=== PATIENT | female | born 1990 | race Caucasian/White ===

== ENCOUNTER 2018-09-01 17:02 | Inpatient (IN) | payer BC ==
[2018-09-01] MEDS ORDERED: Terbutaline 1 MG/ML SDV SUBCUT PRN (18:07)
[2018-09-01] MEDS ORDERED: Sodium Chloride 0.9% 10 ML SDV IV PRN (18:07)
[2018-09-01] MEDS ORDERED: Methylergonovine 0.2 MG/1 ML Amp IM PRN (18:07)
[2018-09-01] MEDS ORDERED: Water For Irrigation,Sterile 1,000 ML Container IRR PRN (18:07)
[2018-09-01] MEDS ORDERED: Misoprostol 25 MCG (1/4 of 100 MCG) Tab VAG PRN ×2 (18:07)
[2018-09-01] MEDS ORDERED: Sodium Chloride 0.9% 2.5 ML Syringe FLUSH PRN (18:07)
[2018-09-01] MEDS ORDERED: Nalbuphine 10 MG/1 ML Vial IVPUSH PRN (18:07)
[2018-09-01] MEDS ORDERED: Sodium Chloride 0.9% 10 ML Syringe FLUSH PRN (18:07)
[2018-09-01] MEDS ORDERED: Carboprost Tromethamine 250 MCG/1 ML Amp IM PRN (18:07)
[2018-09-01] MEDS ORDERED: Butorphanol 1 MG/ML SDV IVPUSH PRN (18:07)
[2018-09-01] MEDS ORDERED: Tranexamic Acid 1,000 MG in Sodium Chloride 0.9% 100 ML IV PRN (18:07)
[2018-09-01] MEDS ORDERED: Lidocaine 1% 50 ML MDV INJECT PRN (18:07)
[2018-09-01] MEDS ORDERED: Misoprostol 200 MCG Tab PO PRN (18:07)
[2018-09-01] MEDS ORDERED: Oxytocin/0.9 % Sodium Chloride 30 UNIT/500 ML BAG IV SCH (18:15)
[2018-09-01] MEDS: Lactated Ringers 1,000 ML IV SCH ×3 (19:38→23:27)
[2018-09-01] MEDS ORDERED: Ropivacaine 0.2% 2 MG/ML 20 ML SDV ONE (23:00)
[2018-09-01] MEDS ORDERED: fentaNYL 100 MCG/2 ML SDV ONE (23:00)
[2018-09-01] MEDS ORDERED: Ropivacaine HCl/PF 100 ML ONE (23:01)
[2018-09-01] MEDS ORDERED: Lidocaine HCl/EPINEPHrine 5 ML IJ ONE (23:01)
--- NOTE | 2018-09-01 23:46 | PCM.PREANE ---
Preanesthetic Assessment - Anesthesia/Transfusion/Family Hx Anesthesia History: No Prior Anesthesia Family History of Anesthesia Reaction: No Transfusion History: No Prior Transfusion(s) - Review of Systems General: No Symptoms Pulmonary: No Symptoms Cardiovascular: No Symptoms Gastrointestinal: No Symptoms Neurological: No Symptoms Other: Reports: None - Physical Assessment NPO Status Date: 09/01/18 NPO Status Time: 20:00 (Clear liquids) Pulse: 92 O2 Sat by Pulse Oximetry: 99 Respiratory Rate: 24 Blood Pressure: 142/85 Height: 1.57 m Weight: 92.986 kg ASA Class: 2 Mental Status: Alert & Oriented x3 Dentition: Reports: Normal Dentition ROM/Head Extension: Full Lungs: Clear to Auscultation Cardiovascular: Regular Rate - Lab Values: Laboratory Last Values WBC 16.08 K/uL (4.0-11.0) H 09/01/18 19:07 RBC 4.51 M/uL (4.30-5.90) 09/01/18 19:07 Hgb 12.1 g/dL (12.0-16.0) 09/01/18 19:07 Hct 37.1 % (36.0-46.0) 09/01/18 19:07 MCV 82.3 fL (80.0-98.0) 09/01/18 19:07 MCH 26.8 pg (27.0-32.0) L 09/01/18 19:07 MCHC 32.6 g/dL (31.0-37.0) 09/01/18 19:07 RDW Std Deviation 41.3 fl (28.0-62.0) 09/01/18 19:07 RDW Coeff of Fatuma 14 % (11.0-15.0) 09/01/18 19:07 Plt Count 157 K/uL (150-400) 09/01/18 19:07 MPV 13.10 fL (7.40-12.00) H 09/01/18 19:07 Nucleated RBC % 0.0 /100WBC 09/01/18 19:07 Nucleated RBCs # 0 K/uL 09/01/18 19:07 Membrane Rupture POSITIVE 09/01/18 17:23 Blood Type A POSITIVE 09/01/18 19:07 Antibody Screen NEGATIVE 09/01/18 19:07 - Allergies Allergies/Adverse Reactions: Allergies Allergy/AdvReac Type Severity Reaction Status Date / Time No Known Allergies Allergy Verified 09/01/18 17:39 - Blood Blood Available: No - Anesthesia Plan Free Text/Narrative:: Continuous labor epidural. - Acknowledgements Anesthesia Type Planned: Epidural Pt an Appropriate Candidate for the Planned Anesthesia: Yes Alternatives and Risks of Anesthesia Discussed w Pt/Guardian: Yes Pt/Guardian Understands and Agrees with Anesthesia Plan: Yes Additional Comments: Discussed. ? answered. Permit signed. Did receive Stadol prior. PreAnesthesia Questionnaire - HOME MEDS Home Medications: Home Meds Levothyroxine 1 tab PO DAILY 09/01/18 [History] - CURRENT (IN HOUSE) MEDS Current Meds: Current Medications Butorphanol Tartrate (Stadol) 1 mg IVPUSH Q1H PRN PRN Reason: Pain Last Admin: 09/01/18 22:47 Dose: 1 mg Carboprost Tromethamine (Hemabate Ds) 250 mcg IM ASDIRECTED PRN PRN Reason: Post Hemorrhage Tranexamic Acid 1,000 mg/ (Sodium Chloride) 110 mls @ 660 mls/hr IV ONETIME PRN PRN Reason: Bleeding Lactated Ringer's (Ringers, Lactated) 1,000 mls @ 150 mls/hr IV ASDIRECTED ATIYA Last Admin: 09/01/18 23:27 Dose: 999 mls/hr Oxytocin/Sodium Chloride (Oxytocin 30 Unit/500 Ml-Ns) 30 unit in 500 mls @ 999 mls/hr IV TITRATE ATIYA Lidocaine HCl (Xylocaine 1%) 50 ml INJECT ONETIME PRN PRN Reason: Laceration repair Methylergonovine Maleate (Methergine) 0.2 mg IM ASDIRECTED PRN PRN Reason: Post Hemorrhage Misoprostol (Cytotec) 200 mcg PO ONETIME PRN PRN Reason: Post Hemorrhage Misoprostol (Cytotec) 25 mcg VAG ONETIME PRN PRN Reason: Cervical Ripening Last Admin: 09/01/18 20:25 Dose: 25 mcg Misoprostol (Cytotec) 25 mcg VAG Q6H PRN PRN Reason: Cervical Ripening Nalbuphine HCl (Nubain) 10 mg IVPUSH Q1H PRN PRN Reason: Pain (severe 7-10) Sodium Chloride (Saline Flush) 10 ml FLUSH ASDIRECTED PRN PRN Reason: Keep Vein Open Sodium Chloride (Saline Flush) 2.5 ml FLUSH ASDIRECTED PRN PRN Reason: Keep Vein Open Sodium Chloride (Normal Saline) 10 ml IV ASDIRECTED PRN PRN Reason: IV Use Sterile Water (Sterile Water For Irrigation) 1,000 ml IRR ASDIRECTED PRN PRN Reason: delivery Terbutaline Sulfate (Brethine) 0.25 mg SUBCUT ASDIRECTED PRN PRN Reason: Tacysystole Discontinued Medications Fentanyl (Sublimaze) Confirm Administered Dose 100 mcg .ROUTE .STK-MED ONE Stop: 09/01/18 23:01 Ropivacaine (Naropin 0.2%) Confirm Administered Dose 100 mls @ as directed .ROUTE .STK-MED ONE Stop: 09/01/18 23:02 Lidocaine/Epinephrine (Lidocaine 1.5%-Epi 1:200,000) Confirm Administered Dose 5 ml IJ .STK-MED ONE Stop: 09/01/18 23:02 Ropivacaine (Naropin 0.2%) Confirm Administered Dose 20 ml .ROUTE .STK-MED ONE Stop: 09/01/18 23:01
--- NOTE | 2018-09-02 00:11 | PCM.PRNOTE ---
- Free Text/Narrative Note: Requested for Labor Epidural on 28y/o in active labor at ~ 5cm. Recently received Stadol. Discussed, risks, benefits and expectations explained. Accepts and wishes to proceed. Permit signed. Prep x3 with betadine @ 7579. Skin local with 4ml 1% Lidocaine @ L3-L4 interspace. 23:13 18g epidural needle inserted. Space via BOGDAN with saline/air mixture. Reconfirmed with 3 ml saline flush. 23:15 Catheter to 8 cm without issues. 23:16 Test dose with 5ml 1.5% lidocaine with 1:200K epi. Test NEGATIVE. Occlusive drsg applied, catheter taped securely. 23:20 Bolus given over 5 minutes of 8ml 0.2% naropin with 100mcg fentanyl added. Vital signs stable. No problems noted. 23:30 Gtt started 8ml/hr, 4ml q15 bolus. 0.2% Naropin. Pain score <2 at present. 23:45 Pain <1. VSS. Doing well. No problems noted at present. 00:10 Resting quietly, pain <1. No problems noted.
--- NOTE | 2018-09-02 03:52 | PCM.DEL ---
L & D Note - General Info Date of Service: 09/02/18 Mother's Due Date: 09/14/18 - Delivery Note Cervical Ripening Method: Misoprostil (after PROM) Delivery Outcome: Livebirth Delivery Mode: Spontaneous Presentation: Left Occiput Anterior (RENO) Nuchal Cord: None Prep: Other Anesthesia Type: Epidural Amniotic Fluid Description: Clear Episiotomy Type: None Laceration: Vaginal Suture type: Vicryl Suture size: 3-0 Placenta: Intact, Spontaneous Cord: 3 Vessels Estimated Blood Loss: 200 Resuscitation Needed: No : Suctioned Score 1 min: 9 Score 5 min: 9 Delivery Comments (Free Text/Narrative):: Liveborn female weight pending. - General Info Date of Service: 09/02/18 - Patient Data Vitals - Most Recent: Last Vital Signs Temp Pulse 92 09/01/18 23:47 Resp 24 H 09/01/18 23:47 BP 142/85 H 09/01/18 23:47 Pulse Ox 99 09/01/18 23:47 Weight - Most Recent: 92.986 kg Lab Results Last 24 Hours: Laboratory Results - last 24 hr 09/01/18 09/01/18 09/01/18 Range/Units 17:23 19:07 19:07 WBC 16.08 H (4.0-11.0) K/uL RBC 4.51 (4.30-5.90) M/uL Hgb 12.1 (12.0-16.0) g/dL Hct 37.1 (36.0-46.0) % MCV 82.3 (80.0-98.0) fL MCH 26.8 L (27.0-32.0) pg MCHC 32.6 (31.0-37.0) g/dL RDW Std Deviation 41.3 (28.0-62.0) fl RDW Coeff of Fatuma 14 (11.0-15.0) % Plt Count 157 (150-400) K/uL MPV 13.10 H (7.40-12.00) fL Nucleated RBC % 0.0 /100WBC Nucleated RBCs # 0 K/uL Membrane Rupture POSITIVE Blood Type A POSITIVE Antibody Screen NEGATIVE Med Orders - Current: Current Medications Butorphanol Tartrate (Stadol) 1 mg IVPUSH Q1H PRN PRN Reason: Pain Last Admin: 09/01/18 22:47 Dose: 1 mg Carboprost Tromethamine (Hemabate Ds) 250 mcg IM ASDIRECTED PRN PRN Reason: Post Hemorrhage Tranexamic Acid 1,000 mg/ (Sodium Chloride) 110 mls @ 660 mls/hr IV ONETIME PRN PRN Reason: Bleeding Lactated Ringer's (Ringers, Lactated) 1,000 mls @ 150 mls/hr IV ASDIRECTED ATIYA Last Admin: 09/01/18 23:27 Dose: 999 mls/hr Oxytocin/Sodium Chloride (Oxytocin 30 Unit/500 Ml-Ns) 30 unit in 500 mls @ 999 mls/hr IV TITRATE [facility] Lidocaine HCl (Xylocaine 1%) 50 ml INJECT ONETIME PRN PRN Reason: Laceration repair Methylergonovine Maleate (Methergine) 0.2 mg IM ASDIRECTED PRN PRN Reason: Post Hemorrhage Misoprostol (Cytotec) 200 mcg PO ONETIME PRN PRN Reason: Post Hemorrhage Misoprostol (Cytotec) 25 mcg VAG ONETIME PRN PRN Reason: Cervical Ripening Last Admin: 09/01/18 20:25 Dose: 25 mcg Misoprostol (Cytotec) 25 mcg VAG Q6H PRN PRN Reason: Cervical Ripening Nalbuphine HCl (Nubain) 10 mg IVPUSH Q1H PRN PRN Reason: Pain (severe 7-10) Sodium Chloride (Saline Flush) 10 ml FLUSH ASDIRECTED PRN PRN Reason: Keep Vein Open Sodium Chloride (Saline Flush) 2.5 ml FLUSH ASDIRECTED PRN PRN Reason: Keep Vein Open Sodium Chloride (Normal Saline) 10 ml IV ASDIRECTED PRN PRN Reason: IV Use Sterile Water (Sterile Water For Irrigation) 1,000 ml IRR ASDIRECTED PRN PRN Reason: delivery Terbutaline Sulfate (Brethine) 0.25 mg SUBCUT ASDIRECTED PRN PRN Reason: Tacysystole Discontinued Medications Fentanyl (Sublimaze) Confirm Administered Dose 100 mcg .ROUTE .STK-MED ONE Stop: 09/01/18 23:01 Ropivacaine (Naropin 0.2%) Confirm Administered Dose 100 mls @ as directed .ROUTE .STK-MED ONE Stop: 09/01/18 23:02 Lidocaine/Epinephrine (Lidocaine 1.5%-Epi 1:200,000) Confirm Administered Dose 5 ml IJ .STK-MED ONE Stop: 09/01/18 23:02 Ropivacaine (Naropin 0.2%) Confirm Administered Dose 20 ml .ROUTE .STK-MED ONE Stop: 09/01/18 23:01 - Problem List & Annotations (1) Vaginal delivery SNOMED Code(s): 030376322 Code(s): O80 - ENCOUNTER FOR FULL-TERM UNCOMPLICATED DELIVERY Status: Acute Current Visit: Yes - Problem List Review Problem List Initiated/Reviewed/Updated: Yes - My Orders Last 24 Hours: My Active Orders 09/01/18 17:39 Patient Status [ADT] Routine Up ad Taniya [RC] ASDIRECTED Resuscitation Status Routine 09/01/18 18:07 Butorphanol [Stadol] 1 mg IVPUSH Q1H PRN Carboprost Tromethamine [Hemabate DS] 250 mcg IM ASDIRECTED PRN Lidocaine 1% [Xylocaine 1%] 50 ml INJECT ONETIME PRN Methylergonovine [Methergine] 0.2 mg IM ASDIRECTED PRN Nalbuphine [Nubain] 10 mg IVPUSH Q1H PRN Sodium Chloride 0.9% [Normal Saline] 10 ml IV ASDIRECTED PRN Sodium Chloride 0.9% [Saline Flush] 10 ml FLUSH ASDIRECTED PRN Sodium Chloride 0.9% [Saline Flush] 2.5 ml FLUSH ASDIRECTED PRN Terbutaline [Brethine] 0.25 mg SUBCUT ASDIRECTED PRN Tranexamic Acid [Cyklokapron] 1,000 mg Sodium Chloride 0.9% [Normal Saline] 100 ml IV ONETIME Water For Irrigation,Sterile [Sterile Water for Irrigation] 1,000 ml IRR ASDIRECTED PRN miSOPROStol [Cytotec] 200 mcg PO ONETIME PRN miSOPROStol [Cytotec] 25 mcg VAG ONETIME PRN miSOPROStol [Cytotec] 25 mcg VAG Q6H PRN 09/01/18 18:09 Patient Status [ADT] Routine Bedrest Bathroom Privileges [RC] ASDIRECTED Communication Order [RC] ASDIRECTED May Shower [RC] ASDIRECTED Notify Provider [RC] PRN Oxygen Therapy [RC] ASDIRECTED Vital Signs [RC] PER UNIT ROUTINE Scalp Electrode [WOMSER] Per Unit Routine Peripheral IV Insertion Adult [OM.PC] Routine 09/01/18 18:15 Lactated Ringers [Ringers, Lactated] 1,000 ml IV ASDIRECTED Oxytocin/0.9 % Sodium Chloride [Oxytocin 30 Unit/500 ML-NS] 30 unit in 500 ml IV TITRATE
[2018-09-02] MEDS ORDERED: Acetaminophen 500 MG Tab PO PRN (03:53)
[2018-09-02] MEDS ORDERED: Bisacodyl 10 MG Supp RECTAL PRN (03:53)
[2018-09-02] MEDS ORDERED: Lanolin 100% Cream 7 GM Tube TOP PRN (03:53)
[2018-09-02] MEDS ORDERED: Methylergonovine 0.2 MG/1 ML Amp IM PRN (03:53)
[2018-09-02] MEDS ORDERED: Witch Hazel Medicated Pads 40/Jar TOP PRN (03:53)
[2018-09-02] MEDS ORDERED: Benzocaine/Menthol 20%-0.5% Spray 78 GM Cannister TOP PRN (03:53)
[2018-09-02] MEDS ORDERED: oxyCODONE 5 MG Tab PO PRN (03:53)
[2018-09-02] MEDS ORDERED: Docusate Sodium 100 MG Cap PO PRN (03:53)
[2018-09-02] MEDS ORDERED: Ibuprofen 400 MG Tab PO PRN (03:53)
--- NOTE | 2018-09-02 04:48 | OR ---
SURGEON: Patricia Contreras M.D. DATE OF PROCEDURE: 09/02/2018 PREOPERATIVE DIAGNOSES: A 38-2/7th week intrauterine , premature rupture of membranes with induction. POSTOPERATIVE DIAGNOSES: A 38-2/7th week intrauterine , premature rupture of membranes with induction. PROCEDURES: Cytotec induction of labor, term spontaneous vaginal delivery, repair of vaginal laceration. ANESTHESIA: Epidural. ESTIMATED BLOOD LOSS: Less than 200 mL. FINDINGS: Liveborn female, score 9 and 9. Weight is pending at the time of dictation. Placenta spontaneous, Schultze intact with 3 vessels. Perineum intact. There was a midline vaginal laceration. No periurethral, vaginal sidewall, cervical or rectal lacerations. EBL less than 200 mL. BRIEF HISTORY: This is a 28-year-old female, G1, P0. She presents at 38 and 1/7th weeks gestation with spontaneous rupture of membranes, clear fluid. She was 2 cm, 80%, -2 station. Occasional contraction. She received a single dose of Cytotec for induction. She received an epidural for pain control when she was 5 cm dilated. She had category 1 heart tones. She progressed to complete. DESCRIPTION OF PROCEDURE: With the patient in dorsal lithotomy position, under adequate epidural analgesia, the patient pushed over a 20-minute time period to a 5+ station, at which time the head was delivered spontaneously and atraumatically over the perineum with support with subsequent delivery of the infant's shoulders and body without any difficulty. The was bulb suctioned by nose and mouth, and after the cord had ceased to pulsate, it was doubly clamped and cut. The infant was handed to the mother in the presence of the nurse attending delivery. The infant was a liveborn female, scores 9 and 9. Weight is pending at the time of dictation. Cord blood was collected for cord ABGs as well as routine cord blood sampling. Pitocin was initiated after delivery of the to assist with delivery of the placenta which was delivered spontaneously. Schultze intact with 3 vessels. Upon inspection of the pelvis and perineum, there were no periurethral, vaginal sidewall, cervical or perineal laceration. There was a midline posterior vaginal laceration that was repaired using a running lock suture of 3-0 Vicryl. Rectal exam confirmed no laceration or tear or suturing near the rectum. Final sponge, needle, and instrument counts were correct. There were no new complications. Mother and baby are in LDR in good condition. PRETTY QUILES /[id number]
[2018-09-02] MEDS: Ibuprofen 800 MG Tab PO PRN ×2 (05:35→22:59)
[2018-09-02] MEDS ORDERED: Levothyroxine 25 MCG Tab PO SCH (09:00)
[2018-09-02] MEDS: Acetaminophen 500 MG Tab PO PRN ×2 (09:22→16:01)
--- NOTE | 2018-09-02 10:23 | PCM.PNPP ---
- General Info Date of Service: 09/02/18 Subjective Update: She felt dizzy this am when getting up to take a shower. She has not slept significantly since delivery. She has had 3 small grape sized clots. Functional Status: Reports: Pain Controlled, Tolerating Diet, Ambulating, Urinating - Review of Systems General: Reports: No Symptoms HEENT: Reports: No Symptoms Pulmonary: Reports: No Symptoms Cardiovascular: Reports: No Symptoms Gastrointestinal: Reports: No Symptoms Genitourinary: Reports: No Symptoms Musculoskeletal: Reports: No Symptoms Skin: Reports: No Symptoms Neurological: Reports: No Symptoms Psychiatric: Reports: No Symptoms - Patient Data Vital Signs - Most Recent: Last Vital Signs Temp 36.7 C 09/02/18 07:28 Pulse 96 09/02/18 07:28 Resp 17 09/02/18 07:28 BP 135/84 09/02/18 07:28 Pulse Ox 94 L 09/02/18 07:28 Weight - Most Recent: 92.986 kg Lab Results - Last 24 Hours: Laboratory Results - last 24 hr 09/01/18 09/01/18 09/01/18 Range/Units 17:23 19:07 19:07 WBC 16.08 H (4.0-11.0) K/uL RBC 4.51 (4.30-5.90) M/uL Hgb 12.1 (12.0-16.0) g/dL Hct 37.1 (36.0-46.0) % MCV 82.3 (80.0-98.0) fL MCH 26.8 L (27.0-32.0) pg MCHC 32.6 (31.0-37.0) g/dL RDW Std Deviation 41.3 (28.0-62.0) fl RDW Coeff of Fatuma 14 (11.0-15.0) % Plt Count 157 (150-400) K/uL MPV 13.10 H (7.40-12.00) fL Nucleated RBC % 0.0 /100WBC Nucleated RBCs # 0 K/uL Cord ABG pH (7.18-7.38) Cord ABG Base Excess (-10--2) Cord VBG pH (7.25-7.45) Cord VBG Base Excess (-10--2) Membrane Rupture POSITIVE Blood Type A POSITIVE Antibody Screen NEGATIVE 09/02/18 09/02/18 Range/Units 03:22 03:22 WBC (4.0-11.0) K/uL RBC (4.30-5.90) M/uL Hgb (12.0-16.0) g/dL Hct (36.0-46.0) % MCV (80.0-98.0) fL MCH (27.0-32.0) pg MCHC (31.0-37.0) g/dL RDW Std Deviation (28.0-62.0) fl RDW Coeff of Fatuma (11.0-15.0) % Plt Count (150-400) K/uL MPV (7.40-12.00) fL Nucleated RBC % /100WBC Nucleated RBCs # K/uL Cord ABG pH 7.252 (7.18-7.38) Cord ABG Base Excess -4 (-10--2) Cord VBG pH 7.297 (7.25-7.45) Cord VBG Base Excess -6 (-10--2) Membrane Rupture Blood Type Antibody Screen Med Orders - Current: Current Medications Acetaminophen (Tylenol Extra Strength) 500 mg PO Q4H PRN PRN Reason: Pain Acetaminophen (Tylenol Extra Strength) 1,000 mg PO Q4H PRN PRN Reason: Pain Last Admin: 09/02/18 09:22 Dose: 1,000 mg Benzocaine/Menthol (Dermoplast Pain Relief 20%-0.5% [place]) 78 gm TOP ASDIRECTED PRN PRN Reason: Perineal Comfort Measure Last Admin: 09/02/18 08:17 Dose: 1 applic Bisacodyl (Dulcolax) 10 mg RECTAL ONETIME PRN PRN Reason: Constipation Docusate Sodium (Colace) 100 mg PO BID PRN PRN Reason: Constipation Emollient Ointment (Lansinoh Hpa) 0 gm TOP ASDIRECTED PRN PRN Reason: Sore Nipples Last Admin: 09/02/18 08:18 Dose: 1 applic Ibuprofen (Motrin) 400 mg PO Q4H PRN PRN Reason: Pain Ibuprofen (Motrin) 800 mg PO Q6H PRN PRN Reason: Pain Last Admin: 09/02/18 05:35 Dose: 800 mg Levothyroxine Sodium (Levothyroxine) 25 mcg PO DAILY ATIYA Last Admin: 09/02/18 09:22 Dose: 25 mcg Methylergonovine Maleate (Methergine) 0.2 mg IM ONETIME PRN PRN Reason: Excessive Vaginal Bleeding Oxycodone HCl (Oxycodone) 5 mg PO Q2H PRN PRN Reason: Pain Witch Natalia (Tucks) 1 pad TOP ASDIRECTED PRN PRN Reason: comfort care Last Admin: 09/02/18 08:18 Dose: 1 applicful Discontinued Medications Butorphanol Tartrate (Stadol) 1 mg IVPUSH Q1H PRN PRN Reason: Pain Last Admin: 09/01/18 22:47 Dose: 1 mg Carboprost Tromethamine (Hemabate Ds) 250 mcg IM ASDIRECTED PRN PRN Reason: Post Hemorrhage Fentanyl (Sublimaze) Confirm Administered Dose 100 mcg .ROUTE .STK-MED ONE Stop: 09/01/18 23:01 Tranexamic Acid 1,000 mg/ (Sodium Chloride) 110 mls @ 660 mls/hr IV ONETIME PRN PRN Reason: Bleeding Lactated Ringer's (Ringers, Lactated) 1,000 mls @ 150 mls/hr IV ASDIRECTED [facility] Last Admin: 09/01/18 23:27 Dose: 999 mls/hr Oxytocin/Sodium Chloride (Oxytocin 30 Unit/500 Ml-Ns) 30 unit in 500 mls @ 999 mls/hr IV TITRATE [facility] Ropivacaine (Naropin 0.2%) Confirm Administered Dose 100 mls @ as directed .ROUTE .STK-MED ONE Stop: 09/01/18 23:02 Lidocaine HCl (Xylocaine 1%) 50 ml INJECT ONETIME PRN PRN Reason: Laceration repair Lidocaine/Epinephrine (Lidocaine 1.5%-Epi 1:200,000) Confirm Administered Dose 5 ml IJ .STK-MED ONE Stop: 09/01/18 23:02 Methylergonovine Maleate (Methergine) 0.2 mg IM ASDIRECTED PRN PRN Reason: Post Hemorrhage Misoprostol (Cytotec) 200 mcg PO ONETIME PRN PRN Reason: Post Hemorrhage Misoprostol (Cytotec) 25 mcg VAG ONETIME PRN PRN Reason: Cervical Ripening Last Admin: 09/01/18 20:25 Dose: 25 mcg Misoprostol (Cytotec) 25 mcg VAG Q6H PRN PRN Reason: Cervical Ripening Nalbuphine HCl (Nubain) 10 mg IVPUSH Q1H PRN PRN Reason: Pain (severe 7-10) Ropivacaine (Naropin 0.2%) Confirm Administered Dose 20 ml .ROUTE .[place]stel ONE Stop: 09/01/18 23:01 Sodium Chloride (Saline Flush) 10 ml FLUSH ASDIRECTED PRN PRN Reason: Keep Vein Open Sodium Chloride (Saline Flush) 2.5 ml FLUSH ASDIRECTED PRN PRN Reason: Keep Vein Open Sodium Chloride (Normal Saline) 10 ml IV ASDIRECTED PRN PRN Reason: IV Use Sterile Water (Sterile Water For Irrigation) 1,000 ml IRR ASDIRECTED PRN PRN Reason: delivery Terbutaline Sulfate (Brethine) 0.25 mg SUBCUT ASDIRECTED PRN PRN Reason: Tacysystole - Interaction Disposition, : in Room with Family Infant Interaction: Holding Feeding: Breastfed ; Nursed Well Support Person: - Recovery Exam Fundal Tone: Firm Fundal Level: 1 Fingerbreadths Below Umbilicus Fundal Placement: Midline Lochia Amount: Small Lochia Color: Rubra/Red Perineum Description: Edematous Episiotomy/Laceration: Approximated Bladder Status: Voiding - Exam General: Alert, Oriented HEENT: Pupils Equal Neck: Supple Lungs: Normal Respiratory Effort GI/Abdominal Exam: Soft, Non-Tender, No Mass Extremities: Normal Inspection, Normal Range of Motion. No: No Pedal Edema (1+) Skin: Warm, Dry, Intact Neurological: No New Focal Deficit Psy/Mental Status: Alert, Normal Affect, Normal Mood - Problem List & Annotations (1) Vaginal delivery SNOMED Code(s): 674039946 Code(s): O80 - ENCOUNTER FOR FULL-TERM UNCOMPLICATED DELIVERY Status: Acute Current Visit: Yes - Problem List Review Problem List Initiated/Reviewed/Updated: Yes - My Orders Last 24 Hours: My Active Orders 09/01/18 17:39 Up ad Taniya [RC] ASDIRECTED 09/01/18 18:09 Bedrest Bathroom Privileges [RC] ASDIRECTED Communication Order [RC] ASDIRECTED May Shower [RC] ASDIRECTED Notify Provider [RC] PRN Oxygen Therapy [RC] ASDIRECTED Vital Signs [RC] PER UNIT ROUTINE 09/02/18 03:53 Acetaminophen [Tylenol Extra Strength] 1,000 mg PO Q4H PRN Acetaminophen [Tylenol Extra Strength] 500 mg PO Q4H PRN Benzocaine/Menthol [Dermoplast Pain Relief 20%-0.5% [place]] 78 gm TOP ASDIRECTED PRN Bisacodyl [Dulcolax] 10 mg RECTAL ONETIME PRN Docusate Sodium [Colace] 100 mg PO BID PRN Ibuprofen [Motrin] 400 mg PO Q4H PRN Ibuprofen [Motrin] 800 mg PO Q6H PRN Lanolin [Lansinoh HPA] See Dose Instructions TOP ASDIRECTED PRN Methylergonovine [Methergine] 0.2 mg IM ONETIME PRN Witch Natalia [Tucks] 1 pad TOP ASDIRECTED PRN oxyCODONE 5 mg PO Q2H PRN Resuscitation Status Routine 09/02/18 03:54 Patient Status [ADT] Routine May Shower [RC] ASDIRECTED Up ad Taniya [RC] ASDIRECTED Vital Signs [RC] PER UNIT ROUTINE Assess Lochia [WOMSER] Per Unit Routine Assess Uterine Involution [WOMSER] Per Unit Routine Perineal Care [OM.PC] Per Unit Routine Peripheral IV Discontinue [OM.PC] Routine 09/02/18 09:00 Levothyroxine 25 mcg PO DAILY 09/02/18 Breakfast Regular Diet [DIET] 09/03/18 05:11 HEMOGLOBIN/HEMATOCRIT,HH [HEME] Timed - Assessment Assessment:: PPD#0 after , stable minimal lochia, tolerating diet Has not slept, wants to take a shower. - Plan Plan:: Encouraged hydration, encouraged her to wait on shower until blood count is available, encouraged her to sleep during the day to catch up on rest, but she is resistant to all of these recommendations.
--- NOTE | 2018-09-02 11:10 | PCM48HPAN ---
Post Anesthesia Note - EVALUATION WITHIN 48HRS OF ANESTHETIC Vital Signs in Normal Range: Yes Patient Participated in Evaluation: Yes Respiratory Function Stable: Yes Airway Patent: Yes Cardiovascular Function Stable: Yes Hydration Status Stable: Yes Pain Control Satisfactory: Yes Nausea and Vomiting Control Satisfactory: Yes Mental Status Recovered: Yes Pulse Rate: 88 SaO2: 97 Resp Rate: 17 Temperature: 37.2 C Blood Pressure: 142/85 - COMMENTS/OBSERVATIONS Free Text/Narrative:: Doing well. No problems noted at present. Progressing well.
--- NOTE | 2018-09-03 08:40 | PCM.PNPP ---
- General Info Date of Service: 09/03/18 Subjective Update: Breast feeding well, bleeding is light. Would like to go home today, baby needs bili lights this am. Functional Status: Reports: Pain Controlled - Review of Systems General: Reports: No Symptoms HEENT: Reports: No Symptoms Pulmonary: Reports: No Symptoms Cardiovascular: Reports: No Symptoms Gastrointestinal: Reports: No Symptoms Genitourinary: Reports: No Symptoms Musculoskeletal: Reports: No Symptoms Skin: Reports: No Symptoms Neurological: Reports: No Symptoms Psychiatric: Reports: No Symptoms - General Info Date of Service: 09/03/18 - Patient Data Vital Signs - Most Recent: Last Vital Signs Temp 36.4 C 09/03/18 07:30 Pulse 73 09/03/18 07:30 Resp 16 09/03/18 07:30 BP 133/89 09/03/18 07:30 Pulse Ox 98 09/03/18 07:30 Weight - Most Recent: 92.986 kg Lab Results - Last 24 Hours: Laboratory Results - last 24 hr 09/02/18 Range/Units 10:39 Hgb 11.7 L (12.0-16.0) g/dL Hct 36.7 (36.0-46.0) % Med Orders - Current: Current Medications Acetaminophen (Tylenol Extra Strength) 500 mg PO Q4H PRN PRN Reason: Pain Acetaminophen (Tylenol Extra Strength) 1,000 mg PO Q4H PRN PRN Reason: Pain Last Admin: 09/02/18 16:01 Dose: 1,000 mg Benzocaine/Menthol (Dermoplast Pain Relief 20%-0.5% [place]) 78 gm TOP ASDIRECTED PRN PRN Reason: Perineal Comfort Measure Last Admin: 09/02/18 08:17 Dose: 1 applic Bisacodyl (Dulcolax) 10 mg RECTAL ONETIME PRN PRN Reason: Constipation Docusate Sodium (Colace) 100 mg PO BID PRN PRN Reason: Constipation Last Admin: 09/02/18 22:59 Dose: 100 mg Emollient Ointment (Lansinoh Hpa) 0 gm TOP ASDIRECTED PRN PRN Reason: Sore Nipples Last Admin: 09/02/18 08:18 Dose: 1 applic Ibuprofen (Motrin) 400 mg PO Q4H PRN PRN Reason: Pain Ibuprofen (Motrin) 800 mg PO Q6H PRN PRN Reason: Pain Last Admin: 09/02/18 22:59 Dose: 800 mg Levothyroxine Sodium (Levothyroxine) 25 mcg PO DAILY [facility] Last Admin: 09/02/18 09:22 Dose: 25 mcg Methylergonovine Maleate (Methergine) 0.2 mg IM ONETIME PRN PRN Reason: Excessive Vaginal Bleeding Oxycodone HCl (Oxycodone) 5 mg PO Q2H PRN PRN Reason: Pain Witch Natalia (Tucks) 1 pad TOP ASDIRECTED PRN PRN Reason: comfort care Last Admin: 09/02/18 08:18 Dose: 1 applicful Discontinued Medications Butorphanol Tartrate (Stadol) 1 mg IVPUSH Q1H PRN PRN Reason: Pain Last Admin: 09/01/18 22:47 Dose: 1 mg Carboprost Tromethamine (Hemabate Ds) 250 mcg IM ASDIRECTED PRN PRN Reason: Post Hemorrhage Fentanyl (Sublimaze) Confirm Administered Dose 100 mcg .ROUTE .STK-MED ONE Stop: 09/01/18 23:01 Tranexamic Acid 1,000 mg/ (Sodium Chloride) 110 mls @ 660 mls/hr IV ONETIME PRN PRN Reason: Bleeding Lactated Ringer's (Ringers, Lactated) 1,000 mls @ 150 mls/hr IV ASDIRECTED [facility] Last Admin: 09/01/18 23:27 Dose: 999 mls/hr Oxytocin/Sodium Chloride (Oxytocin 30 Unit/500 Ml-Ns) 30 unit in 500 mls @ 999 mls/hr IV TITRATE [facility] Ropivacaine (Naropin 0.2%) Confirm Administered Dose 100 mls @ as directed .ROUTE .STK-MED ONE Stop: 09/01/18 23:02 Lidocaine HCl (Xylocaine 1%) 50 ml INJECT ONETIME PRN PRN Reason: Laceration repair Lidocaine/Epinephrine (Lidocaine 1.5%-Epi 1:200,000) Confirm Administered Dose 5 ml IJ .STK-MED ONE Stop: 09/01/18 23:02 Methylergonovine Maleate (Methergine) 0.2 mg IM ASDIRECTED PRN PRN Reason: Post Hemorrhage Misoprostol (Cytotec) 200 mcg PO ONETIME PRN PRN Reason: Post Hemorrhage Misoprostol (Cytotec) 25 mcg VAG ONETIME PRN PRN Reason: Cervical Ripening Last Admin: 09/01/18 20:25 Dose: 25 mcg Misoprostol (Cytotec) 25 mcg VAG Q6H PRN PRN Reason: Cervical Ripening Nalbuphine HCl (Nubain) 10 mg IVPUSH Q1H PRN PRN Reason: Pain (severe 7-10) Ropivacaine (Naropin 0.2%) Confirm Administered Dose 20 ml .ROUTE .[facility]-MED ONE Stop: 09/01/18 23:01 Sodium Chloride (Saline Flush) 10 ml FLUSH ASDIRECTED PRN PRN Reason: Keep Vein Open Sodium Chloride (Saline Flush) 2.5 ml FLUSH ASDIRECTED PRN PRN Reason: Keep Vein Open Sodium Chloride (Normal Saline) 10 ml IV ASDIRECTED PRN PRN Reason: IV Use Sterile Water (Sterile Water For Irrigation) 1,000 ml IRR ASDIRECTED PRN PRN Reason: delivery Terbutaline Sulfate (Brethine) 0.25 mg SUBCUT ASDIRECTED PRN PRN Reason: Tacysystole - Infant Interaction Disposition, : [place] to Nursery Feeding: Breastfed Infant; Nursed Well Support Person: - Recovery Exam Fundal Tone: Firm Fundal Level: 1 Fingerbreadths Below Umbilicus Fundal Placement: Midline Lochia Amount: Small Lochia Color: Rubra/Red Perineum Description: Intact, Minimal Bruising/Swelling Episiotomy/Laceration: Approximated Bladder Status: Voiding Urinary Elimination: Voided - Exam General: Alert, Oriented HEENT: Pupils Equal Neck: Supple Lungs: Normal Respiratory Effort GI/Abdominal Exam: Soft, Non-Tender, No Mass Extremities: Normal Inspection, Non-Tender, No Pedal Edema (trace) Skin: Warm, Dry, Intact Neurological: No New Focal Deficit Psy/Mental Status: Alert, Normal Affect, Normal Mood - Problem List & Annotations (1) Vaginal delivery SNOMED Code(s): 446326657 Code(s): O80 - ENCOUNTER FOR FULL-TERM UNCOMPLICATED DELIVERY Status: Acute Current Visit: Yes - Problem List Review Problem List Initiated/Reviewed/Updated: Yes - My Orders Last 24 Hours: My Active Orders 09/02/18 09:00 Levothyroxine 25 mcg PO DAILY - Assessment Assessment:: PPD#1 after , stable minimal lochia, tolerating diet would like to go home today if baby is discharged. - Plan Plan:: Discharge instructions reviewed.
[2018-09-03 20:06] VITALS: BP 136/90
== END 2018-09-03 20:45 | disposition home or self-care (01) | DRG 560 ==
LOC: MW.OBCHECK 17:02 → MW.OB 17:04 → MW.OBCHECK 18:09 → OBSVTOIN 09-02 03:22 → MW.OB 09-02 09:55
PROVIDERS: ADMIT Obstetrics & Gynecology; ATTEND Obstetrics & Gynecology
PROC: 10E0XZZ Delivery of Products of Conception, External Approach (ICD-10-PCS; principal; 2018-09-02)
PROC: 0HQ9XZZ Repair Perineum Skin, External Approach (ICD-10-PCS; 2018-09-02)
PROC: 3E0P7VZ Introduction of Hormone into Female Reproductive, Via Natural or Artificial Opening (ICD-10-PCS; 2018-09-02)
PROC: 3E0R3BZ Introduction of Anesthetic Agent into Spinal Canal, Percutaneous Approach (ICD-10-PCS; 2018-09-02)
DX: O42.90 Premature rupture of membranes, unspecified as to length of time between rupture and onset of labor, unspecified weeks of gestation (principal); O99.284 Endocrine, nutritional and metabolic diseases complicating childbirth; E03.9 Hypothyroidism, unspecified; F41.9 Anxiety disorder, unspecified; F32.9 Major depressive disorder, single episode, unspecified; O99.344 Other mental disorders complicating childbirth; O99.214 Obesity complicating childbirth; O70.0 First degree perineal laceration during delivery; E66.9 Obesity, unspecified; Z3A.38 38 weeks gestation of pregnancy; Z37.0 Single live birth
CPT/HCPCS: 01967; 36415; 51702; 59025; 59409; 82803; 84112; 85014; 85018; 85027; 86850; 86900; 86901; A9270-GY; J0595; J7120

== ENCOUNTER 2020-06-30 04:11 | Inpatient (IN) | payer BC ==
[2020-06-30 06:32] LABS: BLOOD UREA NITROGEN,BUN 11 mg/dL (7.0-18.0); CARBON DIOXIDE,CO2 25.5 mmol/L (21.0-32.0); CHLORIDE,CL 100 mmol/L (98-107); GLUCOSE RANDOM 87 mg/dL (74-106); POTASSIUM,K 4.1 mmol/L (3.5-5.1); SODIUM,NA 138 mmol/L (136-145)
[2020-06-30] MEDS ORDERED: Sodium Chloride 0.9% 2.5 ML Syringe FLUSH PRN (06:33)
[2020-06-30] MEDS ORDERED: ceFAZolin 2 GM in Premix Bag 1 BAG IV ONE (06:33)
[2020-06-30] MEDS ORDERED: Citric Acid/Sodium Citrate Solution 30 ML Cup PO ONE (06:33)
[2020-06-30] MEDS ORDERED: Sodium Chloride 0.9% 10 ML SDV IV PRN (06:33)
[2020-06-30] MEDS ORDERED: Sodium Chloride 0.9% 10 ML Syringe FLUSH PRN (06:33)
[2020-06-30] MEDS ORDERED: Oxytocin/0.9 % Sodium Chloride 30 UNIT/500 ML BAG IV SCH (06:45)
[2020-06-30] MEDS ORDERED: Lactated Ringers 1,000 ML IV SCH (06:45)
[2020-06-30] MEDS ORDERED: Phenylephrine 1% 10 MG/ML SDV ONE (07:00)
[2020-06-30] MEDS ORDERED: Ondansetron 4 MG/2 ML SDV ONE (07:00)
[2020-06-30] MEDS ORDERED: Oxytocin 10 Units/1 ML SDV ONE (07:00)
[2020-06-30] MEDS ORDERED: Ketorolac 30 MG/ML SDV ONE (07:00)
--- NOTE | 2020-06-30 07:03 | PCM.LDHP ---
L&D History of Present Illness - General Date of Service: 06/30/20 Admit Problem/Dx: Patient Status Order with Admit Dx/Problem 06/30/20 04:56 Patient Status [ADT] Routine 06/30/20 06:34 Patient Status [ADT] Routine Admission Diagnosis/Problem Admission Diagnosis/Problem - History of Present Illness Present Illness Comments:: 29yo at 35w5d presenting with vaginal bleeding and leakage of fluid. Patient reports this AM when she was in the bathroom noticed a popping sensation followed by a gush of fluid that was mixed with dark vaginal bleeding. She continues to have leakage of smaller amount of the bloody fluid after. She reports noticing stronger contractions also every 5-10min. was complicated by posterior placenta previa, which became low lying and 7mm away from the cervical os on 06/03 ultrasound. She received course of betamethasone on 06/18 and 06/19. She has history of hypothyroidism that has been stable on synthyroid. - Related Data Allergies/Adverse Reactions: Allergies Allergy/AdvReac Type Severity Reaction Status Date / Time No Known Allergies Allergy Verified 06/30/20 04:53 Home Medications: Home Meds Levothyroxine 3 tab PO DAILY 09/01/18 [History] Sertraline [Zoloft] 100 mg PO DAILY 06/30/20 [History] Past Medical History HEENT History: Reports: Impaired Vision CULINARY CHEF History: Reports: PID, , Other (See Below) Other OB/BYN History: Abnormal PAP, HPV+. Neurological History: Reports: Migraines Psychiatric History: Reports: Anxiety, Depression Endocrine/Metabolic History: Reports: Hypothyroidism, Obesity/BMI 30+ - Infectious Disease History Infectious Disease History: Reports: Human Papilloma Virus (HPV), Mononucleosis - Past Surgical History HEENT Surgical History: Reports: Tonsillectomy GI Surgical History: Reports: Appendectomy Endocrine Surgical History: Reports: None Social & Family History - Family History HEENT: Reports: Impaired Vision Cardiac: Reports: High Cholesterol, Hypertension OBGYN: Reports: Endocrine/Metabolic: Reports: Hypothyroidism - Caffeine Use Caffeine Use: Reports: Coffee, Soda H&P Review of Systems - Review of Systems: Review Of Systems: See Below General: Reports: No Symptoms HEENT: Reports: No Symptoms Pulmonary: Reports: No Symptoms Cardiovascular: Reports: No Symptoms Gastrointestinal: Reports: No Symptoms Genitourinary: Reports: Other (vaginal bleeding, leakage of fluid) Musculoskeletal: Reports: No Symptoms Skin: Reports: No Symptoms Psychiatric: Reports: No Symptoms Neurological: Reports: No Symptoms Hematologic/Lymphatic: Reports: No Symptoms Immunologic: Reports: No Symptoms L&D Exam - Exam Exam: See Below - Vital Signs Weight: 190 lb - OB Specific Contraction Intensity: Mild to Moderate Movement: Active Heart Tones per Min: 130 Heart Rate (FHR) Variability: Moderate (6-25 bmp) - Exam General: Alert, Oriented, Cooperative HEENT: Conjunctiva Clear Neck: Supple, Trachea Midline Lungs: Clear to Auscultation GI/Abdominal Exam: Normal Bowel Sounds, Soft, Non-Tender Genitourinary: Normal external exam, Vaginal bleeding (light.) Back Exam: Normal Inspection Extremities: Normal Inspection, Normal Range of Motion, Non-Tender, No Pedal Edema Skin: Warm, Dry, Intact Neurological: Cranial Nerves Intact Psychiatric: Alert, Normal Affect, Normal Mood - Patient Data Lab Results Last 24 hrs: Laboratory Results - last 24 hr 06/30/20 06/30/20 06/30/20 Range/Units 05:18 05:18 05:18 WBC 14.66 H (4.0-11.0) K/uL RBC 4.34 (4.30-5.90) M/uL Hgb 11.7 L (12.0-16.0) g/dL Hct 37.2 (36.0-46.0) % MCV 85.7 (80.0-98.0) fL MCH 27.0 (27.0-32.0) pg MCHC 31.5 (31.0-37.0) g/dL RDW Std Deviation 41.6 (28.0-62.0) fl RDW Coeff of Fatuma 13 (11.0-15.0) % Plt Count 237 (150-400) K/uL MPV 12.60 H (7.40-12.00) fL Neut % (Auto) 67.0 (48.0-80.0) % Lymph % (Auto) 22.3 (16.0-40.0) % Ramsey % (Auto) 9.5 (0.0-15.0) % Eos % (Auto) 1.0 (0.0-7.0) % Baso % (Auto) 0.2 (0.0-1.5) % Neut # (Auto) 9.8 H (1.4-5.7) K/uL Lymph # (Auto) 3.3 H (0.6-2.4) K/uL Ramsey # (Auto) 1.4 H (0.0-0.8) K/uL Eos # (Auto) 0.1 (0.0-0.7) K/uL Baso # (Auto) 0.0 (0.0-0.1) K/uL Nucleated RBC % 0.0 /100WBC Nucleated RBCs # 0 K/uL INR 1.00 APTT 23.8 (18.6-31.3) SEC Fibrinogen 224 (215-411) mg/dL Sodium 138 (136-145) mmol/L Potassium 4.1 (3.5-5.1) mmol/L Chloride 100 (98-107) mmol/L Carbon Dioxide 25.5 (21.0-32.0) mmol/L BUN 11 (7.0-18.0) mg/dL Creatinine 0.6 (0.6-1.0) mg/dL Est Cr Clr Drug Dosing 110.40 mL/min Estimated GFR (MDRD) > 60.0 ml/min Glucose 87 (74-106) mg/dL Calcium 8.5 (8.5-10.1) mg/dL Membrane Rupture 06/30/20 Range/Units 05:22 WBC (4.0-11.0) K/uL RBC (4.30-5.90) M/uL Hgb (12.0-16.0) g/dL Hct (36.0-46.0) % MCV (80.0-98.0) fL MCH (27.0-32.0) pg MCHC (31.0-37.0) g/dL RDW Std Deviation (28.0-62.0) fl RDW Coeff of Fatuma (11.0-15.0) % Plt Count (150-400) K/uL MPV (7.40-12.00) fL Neut % (Auto) (48.0-80.0) % Lymph % (Auto) (16.0-40.0) % Ramsey % (Auto) (0.0-15.0) % Eos % (Auto) (0.0-7.0) % Baso % (Auto) (0.0-1.5) % Neut # (Auto) (1.4-5.7) K/uL Lymph # (Auto) (0.6-2.4) K/uL Ramsey # (Auto) (0.0-0.8) K/uL Eos # (Auto) (0.0-0.7) K/uL Baso # (Auto) (0.0-0.1) K/uL Nucleated RBC % /100WBC Nucleated RBCs # K/uL INR APTT (18.6-31.3) SEC Fibrinogen (215-411) mg/dL Sodium (136-145) mmol/L Potassium (3.5-5.1) mmol/L Chloride (98-107) mmol/L Carbon Dioxide (21.0-32.0) mmol/L BUN (7.0-18.0) mg/dL Creatinine (0.6-1.0) mg/dL Est Cr Clr Drug Dosing mL/min Estimated GFR (MDRD) ml/min Glucose (74-106) mg/dL Calcium (8.5-10.1) mg/dL Membrane Rupture POSITIVE Result Diagrams: 06/30/20 05:18 06/30/20 05:18 Problem List Initiated/Reviewed/Updated: Yes Orders Last 24hrs: Active Orders 24 hr Category Date Time Status Patient Status [ADT] Routine ADT 06/30/20 06:34 Active Non Stress Test [RC] PER UNIT ROUTINE Care 06/30/20 04:56 Active Notify Provider Vital Signs [RC] PRN Care 06/30/20 10:00 Active Peripheral IV Care [RC] . DIRECTED Care 06/30/20 06:33 Active Procedure Site Prep Instruct [RC] ASDIRECTED Care 06/30/20 06:34 Active Up ad Taniya [RC] ASDIRECTED Care 06/30/20 04:56 Active Vaginal Exam [RC] Click to Edit Care 06/30/20 04:56 Active Verify Patient Consent Obtain [RC] ASDIRECTED Care 06/30/20 06:34 Active Vital Signs [RC] PER UNIT ROUTINE Care 06/30/20 04:56 Active RPR (SYPHILIS SERO) W/ RFLX [REF] Routine Lab 06/30/20 06:34 Ordered TYPE AND SCREEN [BBK] Routine Lab 06/30/20 05:18 Received Lactated Ringers [Ringers, Lactated] 1,000 ml Med 06/30/20 06:45 Active IV BOLUS Oxytocin/0.9 % Sodium Chloride [Oxytocin 30 Unit/500 ML Med 06/30/20 06:45 Active -NS] 30 unit in 500 ml IV TITRATE Sodium Chloride 0.9% [Normal Saline] Med 06/30/20 06:33 Active 10 ml IV ASDIRECTED PRN Sodium Chloride 0.9% [Saline Flush] Med 06/30/20 06:33 Active 10 ml FLUSH ASDIRECTED PRN Sodium Chloride 0.9% [Saline Flush] Med 06/30/20 06:33 Active 2.5 ml FLUSH ASDIRECTED PRN ceFAZolin [Ancef 2 GM/50 ML] 2 gm Med 06/30/20 06:33 Active Premix Bag 1 bag IV ONETIME Peripheral IV Insertion Adult [OM.PC] Routine Oth 06/30/20 06:34 Ordered Schedule Procedure [COMM] Per Unit Routine Oth 06/30/20 06:34 Ordered Resuscitation Status Routine Resus Stat 06/30/20 04:56 Ordered Medication Orders Lactated Ringer's (Ringers, Lactated) 1,000 mls @ 500 mls/hr IV BOLUS ATIYA Oxytocin/Sodium Chloride (Oxytocin 30 Unit/500 Ml-Ns) 30 unit in 500 mls @ 250 mls/hr IV TITRATE ATIYA Cefazolin Sodium/Dextrose 2 gm (/ Premix) 50 mls @ 100 mls/hr IV ONETIME ONE Stop: 06/30/20 07:02 Sodium Chloride (Sodium Chloride 0.9% 10 Ml Syringe) 10 ml FLUSH ASDIRECTED PRN PRN Reason: Keep Vein Open Sodium Chloride (Sodium Chloride 0.9% 2.5 Ml Syringe) 2.5 ml FLUSH ASDIRECTED PRN PRN Reason: Keep Vein Open Sodium Chloride (Sodium Chloride 0.9% 10 Ml Sdv) 10 ml IV ASDIRECTED PRN PRN Reason: IV Use Assessment/Plan Comment:: 29yo at 35w5d with low lying placenta, presenting with PPROM and vaginal bleeding. - PPROM confirmed with amniosure - bleeding is currently light - Cat 1 tracing - CBC and PT/INR wnl - s/p course of betamethasone 06/18 and 06/19 - Discussed with her option of transfer to higher level facility with NICU due to risk of prematurity, she prefers to continue with delivery in [facility]. 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 Will proceed urgently.
[2020-06-30] MEDS ORDERED: Morphine PF 10 MG/10 ML SDV ONE (07:07)
--- NOTE | 2020-06-30 07:12 | PCM.PREANE ---
Preanesthetic Assessment - Anesthesia/Transfusion/Family Hx Anesthesia History: No Prior Anesthesia Family History of Anesthesia Reaction: No Transfusion History: No Prior Transfusion(s) - Physical Assessment NPO Status Date: 06/30/20 NPO Status Time: 00:05 Height: 1.57 m Weight: 86.183 kg ASA Class: 2E - Lab Values: Laboratory Last Values WBC 14.66 K/uL (4.0-11.0) H 06/30/20 05:18 RBC 4.34 M/uL (4.30-5.90) 06/30/20 05:18 Hgb 11.7 g/dL (12.0-16.0) L 06/30/20 05:18 Hct 37.2 % (36.0-46.0) 06/30/20 05:18 MCV 85.7 fL (80.0-98.0) 06/30/20 05:18 MCH 27.0 pg (27.0-32.0) 06/30/20 05:18 MCHC 31.5 g/dL (31.0-37.0) 06/30/20 05:18 RDW Std Deviation 41.6 fl (28.0-62.0) 06/30/20 05:18 RDW Coeff of Fatuma 13 % (11.0-15.0) 06/30/20 05:18 Plt Count 237 K/uL (150-400) 06/30/20 05:18 MPV 12.60 fL (7.40-12.00) H 06/30/20 05:18 Neut % (Auto) 67.0 % (48.0-80.0) 06/30/20 05:18 Lymph % (Auto) 22.3 % (16.0-40.0) 06/30/20 05:18 Piatt % (Auto) 9.5 % (0.0-15.0) 06/30/20 05:18 Eos % (Auto) 1.0 % (0.0-7.0) 06/30/20 05:18 Baso % (Auto) 0.2 % (0.0-1.5) 06/30/20 05:18 Neut # (Auto) 9.8 K/uL (1.4-5.7) H 06/30/20 05:18 Lymph # (Auto) 3.3 K/uL (0.6-2.4) H 06/30/20 05:18 Piatt # (Auto) 1.4 K/uL (0.0-0.8) H 06/30/20 05:18 Eos # (Auto) 0.1 K/uL (0.0-0.7) 06/30/20 05:18 Baso # (Auto) 0.0 K/uL (0.0-0.1) 06/30/20 05:18 Nucleated RBC % 0.0 /100WBC 06/30/20 05:18 Nucleated RBCs # 0 K/uL 06/30/20 05:18 INR 1.00 06/30/20 05:18 APTT 23.8 SEC (18.6-31.3) 06/30/20 05:18 Fibrinogen 224 mg/dL (215-411) 06/30/20 05:18 Sodium 138 mmol/L (136-145) 06/30/20 05:18 Potassium 4.1 mmol/L (3.5-5.1) 06/30/20 05:18 Chloride 100 mmol/L (98-107) 06/30/20 05:18 Carbon Dioxide 25.5 mmol/L (21.0-32.0) 06/30/20 05:18 BUN 11 mg/dL (7.0-18.0) 06/30/20 05:18 Creatinine 0.6 mg/dL (0.6-1.0) 06/30/20 05:18 Est Cr Clr Drug Dosing 110.40 mL/min 06/30/20 05:18 Estimated GFR (MDRD) > 60.0 ml/min 06/30/20 05:18 Glucose 87 mg/dL (74-106) 06/30/20 05:18 Calcium 8.5 mg/dL (8.5-10.1) 06/30/20 05:18 Membrane Rupture POSITIVE 06/30/20 05:22 Blood Type A POSITIVE 06/30/20 05:18 Antibody Screen NEGATIVE 06/30/20 05:18 - Allergies Allergies/Adverse Reactions: Allergies Allergy/AdvReac Type Severity Reaction Status Date / Time No Known Allergies Allergy Verified 06/30/20 04:53 - Acknowledgements Anesthesia Type Planned: Spinal Pt an Appropriate Candidate for the Planned Anesthesia: Yes Alternatives and Risks of Anesthesia Discussed w Pt/Guardian: Yes Pt/Guardian Understands and Agrees with Anesthesia Plan: Yes PreAnesthesia Questionnaire HEENT History: Reports: Impaired Vision 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 Neurological History: Reports: Migraines Psychiatric History: Reports: Anxiety, Depression Endocrine/Metabolic History: Reports: Hypothyroidism, Obesity/BMI 30+ - Infectious Disease History Infectious Disease History: Reports: Human Papilloma Virus (HPV), Mononucleosis - Past Surgical History HEENT Surgical History: Reports: Tonsillectomy GI Surgical History: Reports: Appendectomy Endocrine Surgical History: Reports: None - HOME MEDS Home Medications: Home Meds Levothyroxine 3 tab PO DAILY 09/01/18 [History] Sertraline [Zoloft] 100 mg PO DAILY 06/30/20 [History] - CURRENT (IN HOUSE) MEDS Current Meds: Current Medications Lactated Ringer's (Ringers, Lactated) 1,000 mls @ 500 mls/hr IV BOLUS ATIYA Oxytocin/Sodium Chloride (Oxytocin 30 Unit/500 Ml-Ns) 30 unit in 500 mls @ 250 mls/hr IV TITRATE ATIYA Sodium Chloride (Sodium Chloride 0.9% 10 Ml Syringe) 10 ml FLUSH ASDIRECTED PRN PRN Reason: Keep Vein Open Sodium Chloride (Sodium Chloride 0.9% 2.5 Ml Syringe) 2.5 ml FLUSH ASDIRECTED PRN PRN Reason: Keep Vein Open Sodium Chloride (Sodium Chloride 0.9% 10 Ml Sdv) 10 ml IV ASDIRECTED PRN PRN Reason: IV Use Discontinued Medications Citric Acid/Sodium Citrate (Citric Acid/Sodium Citrate Solution 30 Ml Cup) 30 ml PO ONETIME ONE Stop: 06/30/20 06:34 Cefazolin Sodium/Dextrose 2 gm (/ Premix) 50 mls @ 100 mls/hr IV ONETIME ONE Stop: 06/30/20 07:02 Ketorolac Tromethamine (Ketorolac 30 Mg/Ml Sdv) Confirm Administered Dose 30 mg .ROUTE .STK-MED ONE Stop: 06/30/20 07:01 Ondansetron HCl (Ondansetron 4 Mg/2 Ml Sdv) Confirm Administered Dose 4 mg .ROUTE .STK-MED ONE Stop: 06/30/20 07:01 Oxytocin (Oxytocin 10 Units/1 Ml Sdv) Confirm Administered Dose 20 unit .ROUTE .STK-MED ONE Stop: 06/30/20 07:01 Phenylephrine HCl (Phenylephrine 1% 10 Mg/Ml Sdv) Confirm Administered Dose 10 mg .ROUTE .ST-MED ONE Stop: 06/30/20 07:01
[2020-06-30] MEDS ORDERED: ceFAZolin 1 GM Vial ONE (07:27)
[2020-06-30] MEDS ORDERED: Sodium Chloride 0.9% 20 ML ONE (07:27)
[2020-06-30] MEDS ORDERED: Midazolam 1 MG/ML 2 ML SDV ONE ×2 (07:57)
[2020-06-30] MEDS ORDERED: Propofol 200 MG/20 ML SDV ONE (07:59)
[2020-06-30] MEDS ORDERED: Nalbuphine 10 MG/1 ML Vial IVPUSH PRN (08:18)
[2020-06-30] MEDS ORDERED: Ondansetron 4 MG/2 ML SDV IVPUSH PRN (08:21)
[2020-06-30] MEDS ORDERED: Acetaminophen/oxyCODONE 325-5 MG Tab PO PRN (08:21)
[2020-06-30] MEDS ORDERED: Lanolin 100% Cream 7 GM Tube TOP PRN (08:21)
[2020-06-30] MEDS ORDERED: Methylergonovine 0.2 MG/1 ML Amp IM PRN (08:21)
[2020-06-30] MEDS ORDERED: Bisacodyl 10 MG Supp RECTAL PRN (08:21)
[2020-06-30] MEDS ORDERED: Oxytocin 10 Units/1 ML SDV IM PRN (08:21)
[2020-06-30] MEDS ORDERED: diphenhydrAMINE 50 MG/ML SDV IVPUSH PRN (08:21)
[2020-06-30] MEDS ORDERED: Misoprostol 200 MCG Tab RECTAL PRN (08:21)
[2020-06-30] MEDS ORDERED: Tranexamic Acid 1,000 MG in Sodium Chloride 0.9% 100 ML IV PRN (08:21)
[2020-06-30] MEDS ORDERED: Octyl 2-Cyanoacrylate 1 Tube ONE (08:22)
--- NOTE | 2020-06-30 08:47 | PCM.OPNOTE ---
- General Post-Op/Procedure Note Date of Surgery/Procedure: 06/30/20 Operative Procedure(s): primary low transverse . Findings: Live born male and weight pending. Uterus and ovaries appear normal tubes free, but somewhat thickened. Pre Op Diagnosis: 35 6/7 weeks, PPROM with partial placenta previa Post-Op Diagnosis: Same Anesthesia Technique: Spinal Primary Surgeon: Patricia Contreras Secondary Surgeon: Pedrito Manning Pathology: placenta to pathology. Fluid Replacement, Intraop: 3,000 EBL in mLs: 600 Complications: None Known Condition: Good
--- NOTE | 2020-06-30 09:15 | PCM.POSTAN ---
POST ANESTHESIA ASSESSMENT - MENTAL STATUS Mental Status: Alert - RESPIRATORY Respiratory Status: Respiratory Rate WNL - CARDIOVASCULAR CV Status: Pulse Rate WNL - GASTROINTESTINAL GI Status: No Symptoms - POST OP HYDRATION Hydration Status: Adequate & Stable
[2020-06-30] MEDS: Lactated Ringers 1,000 ML IV SCH ×2 (13:40→21:41)
[2020-06-30] MEDS: Ketorolac 30 MG/ML SDV IVPUSH SCH ×2 (15:17→15:18)
[2020-06-30] MEDS: Acetaminophen/oxyCODONE 325-5 MG Tab PO PRN (20:59)
[2020-06-30] MEDS: Docusate Sodium 100 MG Cap PO SCH (20:59)
--- NOTE | 2020-06-30 21:25 | OR ---
SURGEON: Patricia Contreras M.D. DATE OF PROCEDURE: 06/30/2020 PREOPERATIVE DIAGNOSES: 35 and 6/7-week intrauterine , premature rupture of membranes, partial placenta previa. POSTOPERATIVE DIAGNOSES: 35 and 6/7-week intrauterine , premature rupture of membranes, partial placenta previa. PROCEDURE: Primary low transverse section. PRIMARY SURGEON: Patriica Contreras M.D. CONTRACT LEAD: Pedrito Manning MD ANESTHESIA: Spinal. ESTIMATED BLOOD LOSS: 600 mL. FLUIDS: 3000 mL crystalloid. FINDINGS: Liveborn male. score 6 and 9. Weighing 2640 g. Tubes were slightly dilated, but free at the fimbria. Uterus and ovaries appeared normal. DISPOSITION: Mother is in recovery in good condition. Baby is in nursery in good condition. COMPLICATIONS: None known. BRIEF HISTORY: This is a 29-year-old female. She is G3, P1-0-1-1, who presents at 35 and 6/7- week gestation with a known posterior placenta previa. This has moved from being a complete previa to a partial previa over recent weeks. However, due to the location of the placenta, we had decided to proceed with a delivery at 37 weeks. However, at this time, she had spontaneous rupture of membranes with mixed bloody amniotic fluid and she has received steroids last week, and therefore decision was made to proceed with a primary low transverse section with risks discussed including bleeding; infection; injury to bowel, bladder, blood vessels, ureters, or other organs; risk of thromboembolic event; risk of anesthesia. Understanding all these risks, she does desire to proceed. DESCRIPTION OF PROCEDURE: With the patient in left tilt position, under adequate spinal analgesia, the abdomen was prepped with chlorhexidine and draped in the usual fashion for abdominal surgery. SCDs were in place. Contreras catheter had been placed, and 2 g of Ancef had been given IV. After documentation of adequate analgesia, a transverse curvilinear incision was made 2 cm cephalad from the pubic symphysis and carried through the subcutaneous tissue. The fascia was scored transversely in the midline. The fascial incision was extended laterally using curved Dent scissors. The fascia was elevated from the underlying rectus muscles using sharp and blunt dissection. The rectus muscles were bluntly . The peritoneum was entered bluntly and the incision was extended with blunt dissection. The Roc O retractor was placed. The visceral peritoneum over the lower uterine segment was incised. A transverse curvilinear incision was made over the lower uterine segment. A finger was used to enter the amniotic cavity, clear fluid was noted, and the head was delivered via the uterine incision without any difficulty with subsequent delivery of the 's body. The was bulb-suctioned by nose and mouth and after 30 seconds, the cord was doubly clamped and cut and the was handed to the bottom turner in attendance at delivery. The was a liveborn male, score 6 and 9, weighing 2640 g. Cord blood was collected for cord ABGs as well as routine cord blood sampling. Pitocin was initiated after delivery of the infant to assist with delivery of the placenta which was removed by manual extraction. The uterus was cleaned with a dry laparotomy tape. The cervix was opened with ring forceps and the uterine incision was closed with a running lock suture of 0 Polysorb followed by an imbricating layer of 0 Polysorb. The uterine incision was hemostatic. The tubes and ovaries were inspected. The paracolic gutters were cleaned. The incision was again inspected, remained hemostatic. The Roc O retractor was removed. Bladder blade was placed and the final inspection revealed complete hemostasis. Therefore, the rectus muscle and peritoneum were loosely approximated in the midline using a running mattress suture. The posterior aspect of the fascia was inspected and was hemostatic. The fascial incision was closed with a running suture of 0 Polysorb. Subcutaneous tissue was irrigated. Any areas of bleeding that were noted were cauterized. The skin was closed with a running subcuticular suture of 3-0 Monocryl followed by Dermabond. Final sponge, needle, and instrument counts were reported as correct. There were no known complications. The patient was transferred to Recovery in good condition. PRETTY / ETTA /[id number]
[2020-07-01] MEDS: Ketorolac 30 MG/ML SDV IVPUSH SCH ×2 (03:04→08:32)
[2020-07-01] MEDS: Acetaminophen/oxyCODONE 325-5 MG Tab PO PRN ×2 (05:42→12:19)
--- NOTE | 2020-07-01 08:14 | PCM48HPAN ---
Post Anesthesia Note - EVALUATION WITHIN 48HRS OF ANESTHETIC Vital Signs in Normal Range: Yes Patient Participated in Evaluation: Yes Respiratory Function Stable: Yes Airway Patent: Yes Cardiovascular Function Stable: Yes Hydration Status Stable: Yes Pain Control Satisfactory: Yes Nausea and Vomiting Control Satisfactory: Yes Mental Status Recovered: Yes Vital Signs: Last Vital Signs Temp 36.7 C 07/01/20 07:30 Pulse 90 07/01/20 08:00 Resp 16 07/01/20 08:00 BP 112/63 07/01/20 07:30 Pulse Ox 96 07/01/20 08:00 - COMMENTS/OBSERVATIONS Free Text/Narrative:: Doing well. No problems post.
--- NOTE | 2020-07-01 08:27 | PCM.PNPP ---
- General Info Date of Service: 07/01/20 Subjective Update: Pain is well controlled. She has pumped 40oz, baby was transferred to [place] is doing well there. They would like to go to [place] today. Functional Status: Reports: Pain Controlled, Tolerating Diet, Ambulating, Urinating - Review of Systems General: Reports: No Symptoms HEENT: Reports: No Symptoms Pulmonary: Reports: No Symptoms Cardiovascular: Reports: No Symptoms Gastrointestinal: Reports: No Symptoms Genitourinary: Reports: No Symptoms Musculoskeletal: Reports: No Symptoms Skin: Reports: No Symptoms Neurological: Reports: No Symptoms Psychiatric: Reports: No Symptoms - General Info Date of Service: 07/01/20 - Patient Data Vital Signs - Most Recent: Last Vital Signs Temp 36.7 C 07/01/20 07:30 Pulse 90 07/01/20 08:00 Resp 16 07/01/20 08:00 BP 112/63 07/01/20 07:30 Pulse Ox 96 07/01/20 08:00 Weight - Most Recent: 86.183 kg I&O - Last 24 Hours: Intake & Output 06/30/20 07/01/20 07/01/20 22:59 06:59 14:59 Intake Total 400 Output Total 45 2350 Balance -5 -2350 Lab Results - Last 24 Hours: Laboratory Results - last 24 hr 07/01/20 Range/Units 06:15 Hgb 10.0 L (12.0-16.0) g/dL Hct 32.2 L (36.0-46.0) % Med Orders - Current: Current Medications Bisacodyl (Bisacodyl 10 Mg Supp) 10 mg RECTAL ONETIME PRN PRN Reason: Constipation Diphenhydramine HCl (Diphenhydramine 50 Mg/Ml Sdv) 25 mg IVPUSH Q6H PRN PRN Reason: Itching or Nausea Last Admin: 06/30/20 16:42 Dose: 25 mg Documented by: Docusate Sodium (Docusate Sodium 100 Mg Cap) 100 mg PO BID ATIYA Last Admin: 06/30/20 20:59 Dose: 100 mg Documented by: Emollient Ointment (Lanolin 100% Cream 7 Gm Tube) 0 gm TOP ASDIRECTED PRN PRN Reason: Sore Nipples Lactated Ringer's (Ringers, Lactated) 1,000 mls @ 500 mls/hr IV BOLUS ATIYA Oxytocin/Sodium Chloride (Oxytocin 30 Unit/500 Ml-Ns) 30 unit in 500 mls @ 250 mls/hr IV TITRATE [facility] Lactated Ringer's (Ringers, Lactated) 1,000 mls @ 125 mls/hr IV ASDIRECTED ATIYA Last Admin: 06/30/20 21:41 Dose: 125 mls/hr Documented by: Tranexamic Acid 1,000 mg/ (Sodium Chloride) 110 mls @ 660 mls/hr IV ONETIME PRN PRN Reason: Bleeding Ibuprofen (Ibuprofen 800 Mg Tab) 800 mg PO Q8H PRN PRN Reason: mild pain or fever Ketorolac Tromethamine (Ketorolac 30 Mg/Ml Sdv) 30 mg IVPUSH Q6H [facility] Stop: 07/01/20 08:31 Last Admin: 07/01/20 03:04 Dose: Not Given Documented by: Methylergonovine Maleate (Methylergonovine 0.2 Mg/1 Ml Amp) 0.2 mg IM ONETIME PRN PRN Reason: Excessive Vaginal Bleeding Misoprostol (Misoprostol 200 Mcg Tab) 1,000 mcg RECTAL ONETIME PRN PRN Reason: excessive bleeding Ondansetron HCl (Ondansetron 4 Mg/2 Ml Sdv) 4 mg IVPUSH Q4H PRN PRN Reason: Nausea/Vomiting Oxycodone/Acetaminophen (Acetaminophen/Oxycodone 325-5 Mg Tab) 1 tab PO Q4H PRN PRN Reason: Pain (moderate 4-6) Last Admin: 07/01/20 05:42 Dose: 1 tab Documented by: Oxycodone/Acetaminophen (Acetaminophen/Oxycodone 325-5 Mg Tab) 2 tab PO Q4H PRN PRN Reason: Pain (moderate 4-6) Oxytocin (Oxytocin 10 Units/1 Ml Sdv) 10 unit IM ASDIRECTED PRN PRN Reason: Excessive Vaginal Bleeding Sodium Chloride (Sodium Chloride 0.9% 10 Ml Syringe) 10 ml FLUSH ASDIRECTED PRN PRN Reason: Keep Vein Open Sodium Chloride (Sodium Chloride 0.9% 2.5 Ml Syringe) 2.5 ml FLUSH ASDIRECTED PRN PRN Reason: Keep Vein Open Sodium Chloride (Sodium Chloride 0.9% 10 Ml Sdv) 10 ml IV ASDIRECTED PRN PRN Reason: IV Use Discontinued Medications Cefazolin Sodium (Cefazolin 1 Gm Vial) Confirm Administered Dose 2 gm .ROUTE .STK-MED ONE Stop: 06/30/20 07:28 Citric Acid/Sodium Citrate (Citric Acid/Sodium Citrate Solution 30 Ml Cup) 30 ml PO ONETIME ONE Stop: 06/30/20 06:34 Last Admin: 07/01/20 03:04 Dose: Not Given Documented by: Cefazolin Sodium/Dextrose 2 gm (/ Premix) 50 mls @ 100 mls/hr IV ONETIME ONE Stop: 06/30/20 07:02 Last Admin: 07/01/20 03:03 Dose: Not Given Documented by: Sodium Chloride (Normal Saline) Confirm Administered Dose 20 mls @ as directed .ROUTE .ST-MED ONE Stop: 06/30/20 07:28 Ketorolac Tromethamine (Ketorolac 30 Mg/Ml Sdv) Confirm Administered Dose 30 mg .ROUTE .ST-MED ONE Stop: 06/30/20 07:01 Midazolam HCl (Midazolam 1 Mg/Ml 2 Ml Sdv) Confirm Administered Dose 2 mg .ROUTE .ST-MED ONE Stop: 06/30/20 07:58 Midazolam HCl (Midazolam 1 Mg/Ml 2 Ml Sdv) Confirm Administered Dose 2 mg .ROUTE .ST-MED ONE Stop: 06/30/20 07:58 Morphine Sulfate (Morphine Pf 10 Mg/10 Ml Sdv) Confirm Administered Dose 10 mg .ROUTE .STK-MED ONE Stop: 06/30/20 07:08 Nalbuphine HCl (Nalbuphine 10 Mg/1 Ml Vial) 5 mg IVPUSH Q3H PRN PRN Reason: Pruritis Stop: 07/01/20 08:18 Last Admin: 06/30/20 11:30 Dose: 5 mg Documented by: Octyl Cyanoacrylate (Octyl 2-Cyanoacrylate 1 Tube) Confirm Administered Dose 1 applic .ROUTE .STK-MED ONE Stop: 06/30/20 08:23 Last Admin: 07/01/20 03:04 Dose: Not Given Documented by: Ondansetron HCl (Ondansetron 4 Mg/2 Ml Sdv) Confirm Administered Dose 4 mg .ROUTE .STK-MED ONE Stop: 06/30/20 07:01 Oxytocin (Oxytocin 10 Units/1 Ml Sdv) Confirm Administered Dose 20 unit .ROUTE .STK-MED ONE Stop: 06/30/20 07:01 Phenylephrine HCl (Phenylephrine 1% 10 Mg/Ml Sdv) Confirm Administered Dose 10 mg .ROUTE .STK-MED ONE Stop: 06/30/20 07:01 Propofol (Propofol 200 Mg/20 Ml Sdv) Confirm Administered Dose 200 mg .ROUTE .STK-MED ONE Stop: 06/30/20 08:00 - Infant Interaction Support Person: - Recovery Exam Fundal Tone: Firm Fundal Level: At Umbilicus Fundal Placement: Midline Lochia Amount: Scant Lochia Color: Rubra/Red Perineum Description: Intact, Minimal Bruising/Swelling Episiotomy/Laceration: None Bladder Status: Voiding Urinary Elimination: Voided - Exam General: Alert, Oriented Neck: Supple Lungs: Normal Respiratory Effort GI/Abdominal Exam: Soft, Non-Tender Extremities: Normal Inspection, Non-Tender, No Pedal Edema Skin: Warm, Dry, Intact Wound/Incisions: Dressing Dry and Intact Neurological: No New Focal Deficit Psy/Mental Status: Alert, Normal Affect, Normal Mood - Problem List & Annotations (1) delivery delivered SNOMED Code(s): 879954443 Code(s): O82 - ENCOUNTER FOR DELIVERY WITHOUT INDICATION Status: Acute Current Visit: Yes (2) premature rupture of membranes (PPROM) delivered, current hospitalization SNOMED Code(s): 997237684, 822171155 Code(s): O42.919 - PRETRM YOUSIF ROM, UNSP TIME BETW RUPT AND ONST LABR, UNSP TRI Status: Acute Current Visit: Yes (3) Placenta previa affecting delivery SNOMED Code(s): 89124771, 924523503 Code(s): O44.00 - COMPLETE PLACENTA PREVIA NOS OR WITHOUT HEMOR, UNSP TRI Status: Acute Current Visit: Yes - Problem List Review Problem List Initiated/Reviewed/Updated: Yes - My Orders Last 24 Hours: My Active Orders 07/01/20 08:24 Ready for Discharge [RC] PER UNIT ROUTINE - Assessment Assessment:: POD#1 after primary for PPROM and partial placenta previa. Stable minimal lochia, would like to be discharged so she can see her baby in [place]. - Plan Plan:: Discharge instructions reviewed. Precautions given.
[2020-07-01] MEDS: Docusate Sodium 100 MG Cap PO SCH (11:31)
[2020-07-01 11:54] VITALS: BP 114/65; PULSE 87
[2020-07-01] MEDS ORDERED: Ibuprofen 800 MG Tab PO PRN (14:30)
== END 2020-07-01 15:23 | disposition home or self-care (01) | DRG 540 ==
LOC: MW.OB 04:11 → MW.OBCHECK 04:11 → MW.OB 06:34
PROVIDERS: ADMIT Obstetrics & Gynecology; ATTEND Obstetrics & Gynecology
PROC: 10D00Z1 Extraction of Products of Conception, Low, Open Approach (ICD-10-PCS; principal; 2020-06-30)
DX: O42.013 Preterm premature rupture of membranes, onset of labor within 24 hours of rupture, third trimester (principal); O44.53 Low lying placenta with hemorrhage, third trimester; O44.33 Partial placenta previa with hemorrhage, third trimester; O99.284 Endocrine, nutritional and metabolic diseases complicating childbirth; E03.9 Hypothyroidism, unspecified; Z90.89 Acquired absence of other organs; Z90.49 Acquired absence of other specified parts of digestive tract; Z3A.35 35 weeks gestation of pregnancy; Z37.0 Single live birth; O41.8X30 Other specified disorders of amniotic fluid and membranes, third trimester, not applicable or unspecified; O99.214 Obesity complicating childbirth; E66.9 Obesity, unspecified; Z79.890 Hormone replacement therapy; Z20.822 Contact with and (suspected) exposure to COVID-19
CPT/HCPCS: 36415; 59025; 80048; 84112; 85014; 85018; 85025; 85384; 85610; 85730; 86592; 86850; 86900; 86901; 86920; 86921; 86922; 88307; A9270-GY; J0690; J1200; J1885; J2250; J2270; J2300; J2370; J2405; J2590; J2704; J7120; U0002

== ENCOUNTER 2020-12-28 06:32 | Day surgery (SDC) | payer BC ==
[~2020-12-28 06:32] MED LIST: cefOXitin 2 GM in Premix Bag 1 BAG IV ONE
[2020-12-28] MEDS: Lactated Ringers 1,000 ML IV SCH ×2 (06:58→09:46)
[2020-12-28] MEDS ORDERED: Scopolamine 1.5 MG Transdermal Patch ONE (07:06)
[2020-12-28] MEDS ORDERED: Metoclopramide 10 MG/2 ML SDV IVPUSH PRN (07:13)
[2020-12-28] MEDS ORDERED: Ondansetron 4 MG/2 ML SDV IVPUSH PRN (07:13)
[2020-12-28] MEDS ORDERED: Albuterol 0.083% 2.5 MG/3 ML Neb Soln NEB PRN (07:13)
[2020-12-28] MEDS ORDERED: HYDROmorphone 1 MG/ML Syringe IVPUSH PRN (07:13)
[2020-12-28] MEDS ORDERED: fentaNYL 100 MCG/2 ML SDV IVPUSH PRN (07:13)
[2020-12-28] MEDS ORDERED: Bupivacaine 0.5% 10 ML SDV ONE (07:22)
[2020-12-28] MEDS ORDERED: Morphine 2 MG/ML SYRINGE IVPUSH PRN ×2 (07:29→09:40)
[2020-12-28] MEDS ORDERED: Naloxone 0.4 MG/ML Syringe IVPUSH PRN (07:29)
--- NOTE | 2020-12-28 07:30 | PCM.PREANE ---
Preanesthetic Assessment - Anesthesia/Transfusion/Family Hx Anesthesia History: Prior Anesthesia Without Reaction Transfusion History: No Prior Transfusion(s) - Review of Systems General: No Symptoms Pulmonary: No Symptoms Cardiovascular: No Symptoms Gastrointestinal: Abdominal Pain Neurological: No Symptoms Other: Reports: None - Physical Assessment NPO Status Date: 12/28/20 NPO Status Time: 00:00 Vital Signs: Last Vital Signs Temp 97.5 F 12/28/20 06:53 Pulse 67 12/28/20 06:53 Resp 14 12/28/20 06:53 BP 113/74 12/28/20 06:53 Pulse Ox 97 12/28/20 06:53 Height: 5 ft 1 in Weight: 166 lb ASA Class: 2 Mental Status: Alert & Oriented x3 Airway Class: Mallampati = 1 Dentition: Reports: Normal Dentition Thyro-Mental Finger Breadths: 3 Mouth Opening Finger Breadths: 3 ROM/Head Extension: Full Lungs: Clear to Auscultation, Normal Respiratory Effort Cardiovascular: Regular Rate, Regular Rhythm - Allergies Allergies/Adverse Reactions: Allergies Allergy/AdvReac Type Severity Reaction Status Date / Time No Known Allergies Allergy Verified 12/22/20 07:29 - Acknowledgements Anesthesia Type Planned: General Anesthesia Pt an Appropriate Candidate for the Planned Anesthesia: Yes Alternatives and Risks of Anesthesia Discussed w Pt/Guardian: Yes Pt/Guardian Understands and Agrees with Anesthesia Plan: Yes PreAnesthesia Questionnaire HEENT History: Reports: Impaired Vision Other HEENT History: wears glasses Cardiovascular History: Reports: None Respiratory History: Reports: None Gastrointestinal History: Reports: Other (See Below) Other Gastrointestinal History: symptomatic cholelithiasis Genitourinary History: Reports: None PROPOSAL EDITOR History: Reports: PID, , Other (See Below) Other OB/BYN History: hx Abnormal PAP, currently breast feeding Musculoskeletal History: Reports: None Neurological History: Reports: Migraines Psychiatric History: Reports: Anxiety, Depression Endocrine/Metabolic History: Reports: Hypothyroidism, Obesity/BMI 30+ Hematologic History: Reports: None Immunologic History: Reports: None Oncologic (Cancer) History: Reports: None Dermatologic History: Reports: None - Infectious Disease History Infectious Disease History: Reports: Chicken Pox, Human Papilloma Virus (HPV), Influenza, Mononucleosis - Past Surgical History Head Surgeries/Procedures: Reports: None HEENT Surgical History: Reports: Tonsillectomy Cardiovascular Surgical History: Reports: None Respiratory Surgical History: Reports: None GI Surgical History: Reports: Appendectomy Female Surgical History: Reports: Section, Other (See Below) Other Female Surgeries/Procedures: c/section 6 months ago, currently breast feeding, hx laparoscopy Endocrine Surgical History: Reports: None Neurological Surgical History: Reports: None Musculoskeletal Surgical History: Reports: None Oncologic Surgical History: Reports: None Dermatological Surgical History: Reports: None - SUBSTANCE USE Tobacco Use Status *Q: Never Tobacco User - HOME MEDS Home Medications: Home Meds Levothyroxine 25 mcg PO DAILY 09/01/18 [History] Sertraline [Zoloft] 100 mg PO DAILY 06/30/20 [History] Pnv No.95/Ferrous Fum/Folic AC [ Vitamin Tablet] 1 tab PO DAILY 12/22/20 [History] - CURRENT (IN HOUSE) MEDS Current Meds: Current Medications Albuterol (Albuterol 0.083% 2.5 Mg/3 Ml Neb Soln) 2.5 mg NEB ONETIME PRN PRN Reason: Wheezing Droperidol (Droperidol 5 Mg/2 Ml Sdv) 0.625 mg IVPUSH ONETIME PRN PRN Reason: Nausea/Vomiting Fentanyl (Fentanyl 100 Mcg/2 Ml Sdv) 50 mcg IVPUSH Q5M PRN PRN Reason: Pain (mild 1-3) Hydromorphone HCl (Hydromorphone 1 Mg/Ml Syringe) 1 mg IVPUSH Q10M PRN PRN Reason: Pain (moderate 4-6) Lactated Ringer's (Ringers, Lactated) 1,000 mls @ 125 mls/hr IV ASDIRECTED [facility] Last Admin: 12/28/20 06:58 Dose: 125 mls/hr Documented by: Metoclopramide HCl (Metoclopramide 10 Mg/2 Ml Sdv) 10 mg IVPUSH ONETIME PRN PRN Reason: Nausea/Vomiting Morphine Sulfate (Morphine 4 Mg/Ml Vial) 2 mg IVPUSH Q10M PRN PRN Reason: Pain (severe 7-10) Naloxone HCl (Naloxone 0.4 Mg/Ml Sdv) 0.1 mg IVPUSH ASDIRECTED PRN PRN Reason: Respiratory Depression Ondansetron HCl (Ondansetron 4 Mg/2 Ml Sdv) 4 mg IVPUSH ONETIME PRN PRN Reason: Nausea/Vomiting Discontinued Medications Bupivacaine HCl (Bupivacaine 0.5% 10 Ml Sdv) Confirm Administered Dose 30 ml .ROUTE .STK-MED ONE Stop: 12/28/20 07:23 Cefoxitin Sodium 2 gm/ Premix 50 mls @ 100 mls/hr IV ONETIME ONE Stop: 12/28/20 06:29 Scopolamine (Scopolamine 1.5 Mg Transdermal Patch) Confirm Administered Dose 1.5 mg .ROUTE .STK-MED ONE Stop: 12/28/20 07:07
[2020-12-28] MEDS ORDERED: Dexmedetomidine 200 MCG/2 ML SDV ONE (07:31)
[2020-12-28] MEDS ORDERED: fentaNYL 100 MCG/2 ML SDV ONE (07:31)
[2020-12-28] MEDS ORDERED: Propofol 200 MG/20 ML SDV ONE (07:31)
[2020-12-28] MEDS ORDERED: Rocuronium Bromide 50 MG/5 ML Syringe ONE (07:31)
[2020-12-28] MEDS ORDERED: Dexamethasone 4 MG/ML 5 ML MDV ONE (07:31)
[2020-12-28] MEDS ORDERED: Sodium Chloride 0.9% 20 ML ONE (07:34)
[2020-12-28] MEDS ORDERED: Midazolam 1 MG/ML 2 ML SDV ONE (07:35)
[2020-12-28] MEDS ORDERED: Ondansetron 4 MG/2 ML SDV ONE (07:42)
[2020-12-28] MEDS ORDERED: cefOXitin 1 GM Vial ONE ×2 (08:05)
[2020-12-28] MEDS ORDERED: Sugammadex Sodium 200 MG/2 ML VIAL ONE (08:12)
[2020-12-28] MEDS ORDERED: Ketorolac 30 MG/ML SDV ONE (08:43)
[2020-12-28] MEDS ORDERED: Lactated Ringers 1,000 ML IV SCH (09:15)
[2020-12-28] MEDS ORDERED: Acetaminophen/HYDROcodone 325-5 MG Tab PO PRN (09:15)
[2020-12-28] MEDS ORDERED: Morphine 4 MG/ML VIAL IVPUSH PRN (09:15)
[2020-12-28] MEDS ORDERED: traMADol 50 MG Tab PO PRN (09:20)
--- NOTE | 2020-12-28 09:25 | PCM.OPNOTE ---
- General Post-Op/Procedure Note Date of Surgery/Procedure: 12/28/20 Operative Procedure(s): Laparoscopic cholecystectomy Pre Op Diagnosis: Symptomatic cholelithiasis Post-Op Diagnosis: Cholelithiasis with impacted cystic duct stone Anesthesia Technique: General ET Tube (ASA II) Primary Surgeon: Dennis Tompkins Fluid Replacement, Intraop: 500 Output, Urine Amount: 50 EBL in mLs: 5 Condition: Good Free Text/Narrative:: Intake & Output 12/27/20 12/28/20 12/28/20 19:59 03:59 11:59 Output Total 50 Balance -50 DICTATION [id number] CPT CODE 32707
--- NOTE | 2020-12-28 10:10 | PCM.POSTAN ---
POST ANESTHESIA ASSESSMENT - MENTAL STATUS Mental Status: Alert, Oriented - VITAL SIGNS Vital Signs: Last Vital Signs Temp 36 C L 12/28/20 09:11 Pulse 59 L 12/28/20 09:41 Resp 12 12/28/20 09:41 BP 122/78 12/28/20 09:41 Pulse Ox 98 12/28/20 09:41 - RESPIRATORY Respiratory Status: Respiratory Rate WNL, Airway Patent, O2 Saturation Stable - CARDIOVASCULAR CV Status: Pulse Rate WNL, Blood Pressure Stable - GASTROINTESTINAL GI Status: No Symptoms - POST OP HYDRATION Hydration Status: Adequate & Stable
--- NOTE | 2020-12-28 10:12 | PCM48HPAN ---
Post Anesthesia Note - EVALUATION WITHIN 48HRS OF ANESTHETIC Vital Signs in Normal Range: Yes Patient Participated in Evaluation: Yes Respiratory Function Stable: Yes Airway Patent: Yes Cardiovascular Function Stable: Yes Hydration Status Stable: Yes Pain Control Satisfactory: Yes Nausea and Vomiting Control Satisfactory: Yes Mental Status Recovered: Yes Vital Signs: Last Vital Signs Temp 36 C L 12/28/20 09:11 Pulse 59 L 12/28/20 09:41 Resp 12 12/28/20 09:41 BP 122/78 12/28/20 09:41 Pulse Ox 98 12/28/20 09:41
[2020-12-28 13:09] VITALS: BP 115/65; PULSE 76
--- NOTE | 2020-12-28 14:14 | OR ---
SURGEON: Dennis Tompkins M.D. DATE OF PROCEDURE: 12/28/2020 OPERATION PERFORMED: Laparoscopic cholecystectomy. PRIMARY SURGEON: Dennis Tompkins M.D. ANESTHESIA: General endotracheal. ASA CLASSIFICATION: II. PREOPERATIVE DIAGNOSIS: Symptomatic cholelithiasis. POSTOPERATIVE DIAGNOSIS: Symptomatic cholelithiasis. Impacted cystic duct stone. ESTIMATED BLOOD LOSS: 5 mL. INTRAOPERATIVE FLUID REPLACEMENT: 500 mL of crystalloid. INTRAOPERATIVE URINARY OUTPUT: 50 mL. DESCRIPTION OF PROCEDURE: The patient was taken to the operating room and placed on the operating table in the supine position. Time-out was called for appropriate identification of the patient and procedure. Thigh-high TEDs and sequential compression boots were placed. Following satisfactory attainment of general endotracheal anesthesia, a Contreras catheter was placed in the patient's urinary bladder. The abdomen was prepped with DuraPrep solution. Sterile drapes were applied. Skin just below the umbilicus was infiltrated with 0.5% Marcaine solution. Small skin incision was made. Hemostasis was obtained with the use of electrocautery. The Veress needle was introduced into the peritoneal cavity. Saline drop test was positive. Carbon dioxide pneumoperitoneum was established with the release set at 13 cm of water. Once a satisfactory pneumoperitoneum was established, 5 mm camera and port were placed in the infraumbilical position. Under camera vision, 12 mm subxiphoid, 5 mm midclavicular, and 5 mm anterior axillary ports were placed. Each incision had preemptively been infiltrated with 0.5% Marcaine solution. The patient was now positioned with her feet down and rolled to the left. The gallbladder was grasped, adhesions were taken down with the [place] dissector. The cystic duct gallbladder junction was identified. The patient did have a stone in the cystic duct. The cystic duct was completely mobilized and good critical view was obtained. Attempts were made to milk the stone back, but this was unsuccessful. Therefore, a single clip was placed just below the stone and a small incision made in the cystic duct where the stone was removed. A clip was then placed just below the cystotomy incision and another one placed on the neck of the gallbladder before transecting the cystic duct. Cystic artery was likewise identified, dissected free and doubly clipped proximally with a single clip on the gallbladder side before transection. Using electrocautery, the gallbladder was dissected away from its bed. Once the gallbladder was amputated, this was promptly placed in an EndoCatch. The bed of the gallbladder was inspected for hemostasis and bile leak. No bleeding was noted and there was no bile leak identified. All fluid was aspirated. The right hemidiaphragm was then irrigated with 250 mL of saline containing 20 mL of 0.5% Marcaine solution. That fluid was left in place. The EndoCatch containing gallbladder and 12 mm subxiphoid ports were removed. Again, under camera vision, the 5 mm midclavicular and anterior axillary ports were removed and finally the infraumbilical camera port were removed. Wounds were inspected for hemostasis. No bleeding was noted. The subxiphoid and infraumbilical incisions were closed in 2 layers approximating the subcutaneous tissue with 3-0 Vicryl and the skin with subcuticular 4-0 Monocryl. The mid axillary and anterior axillary and midclavicular incisions were closed with subcuticular 4-0 Monocryl. All incisions were Steri-Stripped and dressed with sterile Tegaderm pads. Sponge, needle, and instrument counts were all correct. Contreras catheter was removed prior to emergence from anesthesia. Following emergence from anesthesia and extubation, the patient was taken to recovery room in stable condition. GINNY QUILES /[id number] SUSAN
== END 2020-12-28 12:40 | disposition home or self-care (01) ==
LOC: MW.SDS 06:32
PROVIDERS: ATTEND Surgery
DX: K81.1 Chronic cholecystitis (principal); F41.9 Anxiety disorder, unspecified; K90.49 Malabsorption due to intolerance, not elsewhere classified; E03.9 Hypothyroidism, unspecified; E66.9 Obesity, unspecified; Z79.899 Other long term (current) drug therapy; Z90.49 Acquired absence of other specified parts of digestive tract; Z98.890 Other specified postprocedural states; Z79.890 Hormone replacement therapy; Z68.31 Body mass index [BMI] 31.0-31.9, adult
CPT/HCPCS: 47562; 81025; J0131; J0694; J1100; J1170; J1885; J2250; J2405; J2704; J3010; J3490; J7030; J7120; 00790

== ENCOUNTER 2022-02-25 05:34 | Inpatient (IN) | payer BC ==
[2022-02-25] MEDS ORDERED: Citric Acid/Sodium Citrate Solution 30 ML Cup PO ONE (05:36)
[2022-02-25] MEDS ORDERED: Sodium Chloride 0.9% 20 ML SDV IV PRN (05:36)
[2022-02-25] MEDS ORDERED: Sodium Chloride 0.9% 2.5 ML Syringe FLUSH PRN (05:36)
[2022-02-25] MEDS ORDERED: Sodium Chloride 0.9% 10 ML Syringe FLUSH PRN (05:36)
[2022-02-25] MEDS ORDERED: ceFAZolin 2 GM in Premix Bag 1 BAG IV ONE (05:36)
[2022-02-25] MEDS ORDERED: Oxytocin/0.9 % Sodium Chloride 30 UNIT/500 ML BAG IV SCH ×2 (05:45→09:15)
[2022-02-25] MEDS: Lactated Ringers 1,000 ML IV SCH ×4 (06:09→18:51)
[2022-02-25] MEDS ORDERED: Oxytocin 10 Units/1 ML SDV ONE (07:36)
[2022-02-25] MEDS ORDERED: Ondansetron 4 MG/2 ML SDV ONE (07:36)
[2022-02-25] MEDS ORDERED: fentaNYL 100 MCG/2 ML SDV ONE (07:36)
[2022-02-25] MEDS ORDERED: Ketorolac 30 MG/ML SDV ONE (07:36)
[2022-02-25] MEDS ORDERED: Dexamethasone 4 MG/ML 5 ML MDV ONE (07:36)
[2022-02-25] MEDS ORDERED: Morphine PF 10 MG/10 ML SDV ONE (07:36)
[2022-02-25] MEDS ORDERED: ceFAZolin 1 GM Vial ONE ×2 (07:36→08:05)
[2022-02-25] MEDS ORDERED: Ropivacaine 0.5% 5 MG/ML 30 ML SDV ONE (07:41)
[2022-02-25] MEDS ORDERED: Bupivacaine 0.5% 10 ML SDV ONE (07:43)
[2022-02-25] MEDS ORDERED: diphenhydrAMINE 50 MG/ML SDV IVPUSH PRN (09:03)
[2022-02-25] MEDS ORDERED: Tranexamic Acid 1,000 MG in Sodium Chloride 0.9% 100 ML IV PRN ×2 (09:03→10:22)
[2022-02-25] MEDS ORDERED: Ibuprofen 800 MG Tab PO PRN (09:03)
[2022-02-25] MEDS ORDERED: Acetaminophen/oxyCODONE 325-5 MG Tab PO PRN (09:03)
[2022-02-25] MEDS ORDERED: Misoprostol 200 MCG Tab RECTAL PRN (09:03)
[2022-02-25] MEDS ORDERED: Bisacodyl 10 MG Supp RECTAL PRN (09:03)
[2022-02-25] MEDS ORDERED: Lanolin 100% Cream 7 GM Tube TOP PRN (09:03)
[2022-02-25] MEDS ORDERED: Oxytocin 10 Units/1 ML SDV IM PRN (09:03)
[2022-02-25] MEDS ORDERED: Ondansetron 4 MG/2 ML SDV IVPUSH PRN (09:03)
[2022-02-25] MEDS ORDERED: Ketorolac 30 MG/ML SDV IVPUSH SCH (09:15)
[2022-02-25] MEDS ORDERED: Nalbuphine HCl 10 MG/ 1ML Amp IVPUSH PRN (11:03)
[2022-02-25] MEDS: Ketorolac 30 MG/ML SDV IVPUSH SCH ×2 (14:05→20:10)
[2022-02-25] MEDS: Docusate Sodium 100 MG Cap PO SCH (20:11)
[2022-02-25] MEDS ORDERED: Naloxone 0.4 MG/ML SDV ONE (20:15)
[2022-02-26] MEDS: Ketorolac 30 MG/ML SDV IVPUSH SCH ×2 (03:10→09:22)
[2022-02-26] MEDS: Levothyroxine 100 MCG Tab PO SCH (08:05)
[2022-02-26] MEDS: Sertraline 100 MG Tab PO SCH (09:16)
[2022-02-26] MEDS: Docusate Sodium 100 MG Cap PO SCH ×2 (09:22→21:28)
[2022-02-26] MEDS: Prenatal Multivitamin with Calcium/Folic Acid/Iron Tab PO SCH (09:22)
[2022-02-26] MEDS ORDERED: Sodium Ferric Gluconate Cmplex 125 MG in Sodium Chloride 0.9% 100 ML IV ONE (12:15)
[2022-02-26] MEDS: Acetaminophen/oxyCODONE 325-5 MG Tab PO PRN (22:04)
[2022-02-27] MEDS: Acetaminophen/oxyCODONE 325-5 MG Tab PO PRN ×2 (05:51→11:10)
[2022-02-27] MEDS: Levothyroxine 100 MCG Tab PO SCH (06:58)
[2022-02-27 08:43] VITALS: BP 135/96; PULSE 77
[2022-02-27] MEDS: Prenatal Multivitamin with Calcium/Folic Acid/Iron Tab PO SCH (10:08)
[2022-02-27] MEDS: Sertraline 100 MG Tab PO SCH (10:08)
[2022-02-27] MEDS: Docusate Sodium 100 MG Cap PO SCH (10:08)
== END 2022-02-27 16:15 | disposition home or self-care (01) | DRG 540 ==
LOC: MW.OB 05:34
PROVIDERS: ADMIT Obstetrics & Gynecology; ATTEND Obstetrics & Gynecology
PROC: 10D00Z1 Extraction of Products of Conception, Low, Open Approach (ICD-10-PCS; principal; 2022-02-25)
DX: O34.211 Maternal care for low transverse scar from previous cesarean delivery (principal); Z37.0 Single live birth; O99.284 Endocrine, nutritional and metabolic diseases complicating childbirth; E03.9 Hypothyroidism, unspecified; O99.214 Obesity complicating childbirth; O99.344 Other mental disorders complicating childbirth; Z20.822 Contact with and (suspected) exposure to COVID-19; F41.9 Anxiety disorder, unspecified; F32.A Depression, unspecified; O99.02 Anemia complicating childbirth; D64.9 Anemia, unspecified; Z3A.37 37 weeks gestation of pregnancy
CPT/HCPCS: 01961; 36415; 59025; 64488; 82803; 85014; 85018; 85027; 86592; 86850; 86900; 86901; A9270-GY; J0690; J1100; J1885; J2274; J2300; J2310; J2405; J2590; J2795; J2916; J3010; J3490; J7030; J7050; J7120; U0002

== ENCOUNTER 2022-03-01 21:20 | Emergency (ER) | payer BC ==
[2022-03-01] MEDS ORDERED: Labetalol 100 MG Tab PO STA (21:56)
[2022-03-02 00:07] VITALS: BP 162/97; PULSE 99
== END 2022-03-02 00:07 | disposition home or self-care (01) ==
LOC: MW.ED 21:20
DX: Z53.21 Procedure and treatment not carried out due to patient leaving prior to being seen by health care provider (principal)
CPT/HCPCS: A9270-GY